=== PATIENT | female | born 1955 | race Caucasian/White ===

== ENCOUNTER → 2020-01-01 13:22 | Outpatient (BNVA) | payer MEDICARE, SELFPAY | PROVIDERS: PCP Internal Medicine; Referring Provider Internal Medicine; Visit Provider Internal Medicine | DX: J44.9 Chronic obstructive pulmonary disease, unspecified (principal); Z79.899 Other long term (current) drug therapy | CPT/HCPCS: 94010; 99213 ==

== ENCOUNTER 2020-03-25 13:55 | Outpatient (REF) | payer MEDICARE, SELFPAY ==
--- NOTE | 2020-03-25 14:03 | MM_ITS ---
EXAMINATION: BONE DENSITOMETRY CLINICAL INDICATION: Age-related osteoporosis without current pathological fracture. COMPARISON: Previous BD dated 11/11/2017 and baseline BD dated 10/09/2008. TECHNIQUE: Using a [employer] DXA System (software version: 13.1) manufactured by [employer], dual-energy x-ray absorptiometry was performed of the lumbar spine and left hip. The images are of good technical quality. Summary results are attached. FINDINGS: AP SPINE L1-L4: Current: BMD 0.721 g/cm2, Z-score -2.4, T-score -3.8, osteoporosis, 1.1% decrease from previous, 5.1% decrease from baseline (<5% change is not significant). Prior: BMD 0.729 g/cm2. Baseline: BMD 0.760 g/cm2. LEFT FEMUR, NECK: Current: BMD 0.663 g/cm2, Z-score -1.3, T-score -2.7, osteoporosis. Prior: BMD 0.682 g/cm2. Baseline: BMD 0.725 g/cm2. LEFT FEMUR, TOTAL: Current: BMD 0.722 g/cm2, Z-score -1.2, T-score -2.3, osteopenia, 1.0% decrease from previous, 1.4% increase from baseline (<5% change is not significant). Prior: BMD 0.729 g/cm2. Baseline: BMD 0.712 g/cm2. IDENTIFIED RISK FACTORS: Early menopause, secondary osteoporosis, hysterectomy, bilateral oophorectomy, osteoporosis. HISTORY OF FRACTURE: Foot. MEDICATIONS: None listed. MM/XR DEXA axial skeleton IMPRESSION: 1. DIAGNOSIS: Osteoporosis based on the lowest T-score value of -3.8 in the lumbar spine applying World Health Organization criteria. 2. 10-YEAR FRACTURE RISK PREDICTION, FRAX: Major osteoporotic fracture (clinical spine, forearm, hip or shoulder) 22.2%. Hip fracture 5.2%. 3. Treatment Recommendations: NOF guidelines recommend consideration for treatment in postmenopausal women and men age 50 and older presenting with the following: -A hip or vertebral (clinical or morphometric) fracture. -T-score less than or equal to -2.5 at the femoral neck or spine after appropriate evaluation to exclude secondary causes. -Low bone mass at the hip or spine and a 10-year fracture probability by FRAX of greater than or equal to 3% for hip fracture or greater than or equal to 20% for major osteoporotic fracture based on the [place] adapted WHO algorithm. 4. Other Recommendations: All treatment decisions require clinical judgment and consideration of individual patient factors, including patient preferences, comorbidities, previous drug use, risk factors not captured in the FRAX model (e.g. frailty, falls, vitamin D deficiency, increased bone turnover, interval significant decline in bone density) and possible under or overestimation of fracture risk by FRAX. Additional medical evaluation for secondary cause of low bone mineral density may be appropriate. FUTURE SCAN RECOMMENDATION: People with diagnosed cases of osteoporosis or at high risk for fracture should have regular bone mineral density tests. For patients eligible for Medicare, routine testing is allowed once every 2 years. The testing frequency can be increased to one year for patients who have rapidly progressing disease, those who are receiving or discontinuing medical therapy to restore bone mass, or have additional risk factors.
== END 2020-03-25 13:56 | disposition home or self-care (01) ==
LOC: HO.MAMMO 13:55
PROVIDERS: PCP Internal Medicine; Visit Provider Internal Medicine
DX: M81.0 Age-related osteoporosis without current pathological fracture (principal); Z78.0 Asymptomatic menopausal state; Z90.710 Acquired absence of both cervix and uterus; Z90.722 Acquired absence of ovaries, bilateral
CPT/HCPCS: 77080

== ENCOUNTER → 2020-05-01 13:20 | Outpatient (BNVA) | payer MEDICARE, SELFPAY | PROVIDERS: PCP Internal Medicine; Visit Provider Internal Medicine | DX: J45.909 Unspecified asthma, uncomplicated (principal); J44.9 Chronic obstructive pulmonary disease, unspecified | CPT/HCPCS: 99212 ==

== ENCOUNTER 2020-06-07 15:31 | Outpatient (REF) | payer MEDICARE, SELFPAY ==
--- NOTE | ~2020-06-07 | MM_ITS ---
EXAMINATION: MM SCREENING DIGITAL BREAST TOMOSYNTHESIS, BILATERAL CLINICAL INFORMATION: Screening. Asymptomatic. The lifetime risk of breast cancer based on the Tyrer-Cuzick Model is 6.7%. COMPARISON: Mammography: July 22, 2018 and studies dating back to June 16, 2010 TECHNIQUE: Digital breast tomosynthesis is performed in both the craniocaudal and mediolateral oblique views along with computer-aided detection (CAD). Synthesized 2D images are generated from the tomosynthesis. FINDINGS: There are scattered areas of fibroglandular density (ACR BI-RADS breast composition Category b). There are no significant masses, abnormal calcifications, or other abnormalities. MM/MM tomosynthesis screening BI IMPRESSION: There are no significant changes from prior study. ASSESSMENT: BI-RADS 1: Negative RECOMMENDATION: Routine annual mammography screening. This patient's information was entered into a reminder system with a target due date for their next mammogram.
== END 2020-06-07 15:32 | disposition home or self-care (01) ==
LOC: HO.MAMMO 15:31
PROVIDERS: PCP Internal Medicine; Visit Provider Internal Medicine
DX: Z12.31 Encounter for screening mammogram for malignant neoplasm of breast (principal)
CPT/HCPCS: 77063; 77067

== ENCOUNTER 2020-08-09 11:43 | Outpatient (REF) | payer MEDICARE, SELFPAY ==
[2020-08-09 14:16] LABS: Hematocrit 41.9 % (37-47); Hemoglobin 13.5 g/dl (12.0-16.0); Mean Corpuscular HGB Conc 32.2 g/dl (31.0-35.0); Mean Corpuscular Hemoglobin 28.8 pg (27.0-33.0); Mean Corpuscular Volume 89.5 fL (80-98); Mean Platelet Volume 9.8 fL (9.4-12.3); Platelet Count 240 X10*3/uL (160-400); Red Blood Count 4.68 X10*6/uL (4.20-5.50); Red Cell Distribution Width 13.2 % (11.0-16.0); White Blood Count 4.2 X10*3/uL (4.8-10.8)
[2020-08-09 14:27] LABS: Alanine Aminotransferase 17 U/L (0-31); Albumin Level 4.1 g/dL (3.5-5.0); Alkaline Phosphatase 135 U/L (39-117); Anion Gap 14 (12-20); Aspartate Amino Transferase 20 U/L (5-31); Bilirubin Total 0.3 mg/dL (0.0-1.0); Blood Urea Nitrogen 21 mg/dL (9-16); Calcium 9.1 mg/dL (8.4-10.2); Carbon Dioxide 24 mmol/L (22-29); Chloride 108 mmol/L (96-108); Cholesterol 158 mg/dL; Estimated Glomerular Filt Rate > 60; Glucose Fasting 84 mg/dL (60-99); HDL Cholesterol 44 mg/dL; LDL Cholesterol Calculated 93 mg/dl; Potassium 4.3 mmol/L (3.3-5.1); Sodium 142 mmol/L (135-145); Total Protein 6.9 g/dL (6.5-8.0); Triglycerides 106 mg/dL
[2020-08-09 14:49] LABS: TSH reflex Free T4 1.03 uIU/mL (0.32-4.0)
[2020-08-10 06:45] LABS: Theophylline 5.6
== END 2020-08-09 11:44 | disposition home or self-care (01) ==
LOC: HO.HMGCLDS 11:43
PROVIDERS: PCP Internal Medicine; Visit Provider Internal Medicine
DX: M81.0 Age-related osteoporosis without current pathological fracture (principal); E78.5 Hyperlipidemia, unspecified; J44.9 Chronic obstructive pulmonary disease, unspecified
CPT/HCPCS: 36415; 80053; 80061; 80198; 84443; 85027

== ENCOUNTER → 2020-08-29 13:20 | Outpatient (BNVA) | payer MEDICARE, SELFPAY | PROVIDERS: PCP Internal Medicine; Visit Provider Internal Medicine | DX: J45.909 Unspecified asthma, uncomplicated (principal); J44.9 Chronic obstructive pulmonary disease, unspecified; J44.1 Chronic obstructive pulmonary disease with (acute) exacerbation | CPT/HCPCS: 99212 ==

== ENCOUNTER → 2020-12-26 13:26 | Outpatient (BNVA) | payer MEDICARE, SELFPAY | PROVIDERS: PCP Internal Medicine; Visit Provider Internal Medicine | DX: J44.9 Chronic obstructive pulmonary disease, unspecified (principal); J45.909 Unspecified asthma, uncomplicated; M81.0 Age-related osteoporosis without current pathological fracture | CPT/HCPCS: 99212 ==

== ENCOUNTER → 2021-04-24 13:03 | Outpatient (BNVA) | payer MEDICARE, SELFPAY | PROVIDERS: PCP Internal Medicine; Visit Provider Internal Medicine | DX: J44.9 Chronic obstructive pulmonary disease, unspecified (principal); J45.909 Unspecified asthma, uncomplicated | CPT/HCPCS: 99212 ==

== ENCOUNTER 2021-06-09 13:59 | Outpatient (REF) | payer MEDICARE, SELFPAY ==
--- NOTE | ~2021-06-09 | MM_ITS ---
EXAMINATION: MM SCREENING DIGITAL BREAST TOMOSYNTHESIS, BILATERAL CLINICAL INFORMATION: Screening. Asymptomatic. The lifetime risk of breast cancer based on the Tyrer-Cuzick Model is 7%. COMPARISON: Mammography: 06/07/2020, 07/22/2018, 06/13/2012, 06/16/2010 TECHNIQUE: Digital breast tomosynthesis is performed in both the craniocaudal and mediolateral oblique views along with computer-aided detection (CAD). Synthesized 2D images are generated from the tomosynthesis. FINDINGS: There are scattered areas of fibroglandular density (ACR BI-RADS breast composition Category b). There are no significant masses, abnormal calcifications, or other abnormalities. There are small dermal lesions again seen overlying the bilateral anterior upper breast on MLO views. Parenchymal pattern is similar to prior exams. The axilla are unremarkable. MM/MM tomosynthesis screening BI IMPRESSION: No mammographic evidence of malignancy. ASSESSMENT: BI-RADS 2: Benign RECOMMENDATION: Routine annual mammography screening. This patient's information was entered into a reminder system with a target due date for their next mammogram.
== END 2021-06-09 14:00 | disposition home or self-care (01) ==
LOC: HO.MAMMO 13:59
PROVIDERS: PCP Internal Medicine; Visit Provider Internal Medicine
DX: Z12.31 Encounter for screening mammogram for malignant neoplasm of breast (principal)
CPT/HCPCS: 77063; 77067

== ENCOUNTER 2021-07-24 13:38 | Outpatient (REF) | payer MEDICARE, SELFPAY ==
[2021-07-24 16:34] LABS: Hemoglobin 12.9 g/dl (12.0-16.0); Mean Corpuscular HGB Conc 33.1 g/dl (31.0-35.0); Mean Corpuscular Hemoglobin 29.5 pg (27.0-33.0); Mean Platelet Volume 10.1 fL (9.4-12.3); Platelet Count 256 X10*3/uL (160-400); Red Blood Count 4.38 X10*6/uL (4.20-5.50); Red Cell Distribution Width 12.9 % (11.0-16.0); White Blood Count 4.9 X10*3/uL (4.8-10.8)
[2021-07-24 16:45] LABS: Alanine Aminotransferase 14 U/L (0-31); Alkaline Phosphatase 98 U/L (39-117); Anion Gap 12 (12-20); Aspartate Amino Transferase 17 U/L (5-31); Bilirubin Total 0.5 mg/dL (0.0-1.0); Blood Urea Nitrogen 16 mg/dL (9-16); Calcium 9.5 mg/dL (8.4-10.2); Carbon Dioxide 23 mmol/L (22-29); Chloride 110 mmol/L (96-108); Cholesterol 157 mg/dL; Estimated Glomerular Filt Rate > 60; Glucose Fasting 78 mg/dL (60-99); HDL Cholesterol 42 mg/dL; LDL Cholesterol Calculated 95 mg/dl; Potassium 4.1 mmol/L (3.3-5.1); Sodium 141 mmol/L (135-145); Total Protein 7.2 g/dL (6.5-8.0); Triglycerides 103 mg/dL
== END 2021-07-24 13:39 | disposition home or self-care (01) ==
LOC: HO.HMGCLDS 13:38
PROVIDERS: PCP Internal Medicine; Visit Provider Internal Medicine
DX: E78.5 Hyperlipidemia, unspecified (principal); J44.9 Chronic obstructive pulmonary disease, unspecified
CPT/HCPCS: 36415; 80053; 80061; 84443; 85027

== ENCOUNTER → 2021-11-06 13:10 | Outpatient (BNVA) | payer MEDICARE, SELFPAY | PROVIDERS: PCP Internal Medicine; Visit Provider Internal Medicine | DX: J44.9 Chronic obstructive pulmonary disease, unspecified (principal); Z79.899 Other long term (current) drug therapy | CPT/HCPCS: 99212 ==

== ENCOUNTER → 2022-05-12 13:19 | Outpatient (BNVA) | payer MEDICARE, SELFPAY | PROVIDERS: PCP Internal Medicine; Visit Provider Internal Medicine | DX: J44.9 Chronic obstructive pulmonary disease, unspecified (principal); J45.909 Unspecified asthma, uncomplicated | CPT/HCPCS: 99212 ==

== ENCOUNTER 2022-06-11 13:07 | Outpatient (REF) | payer MEDICARE, SELFPAY ==
--- NOTE | ~2022-06-11 | MM_ITS ---
EXAMINATION: MM SCREENING DIGITAL BREAST TOMOSYNTHESIS, BILATERAL CLINICAL INFORMATION: Screening. Asymptomatic. The lifetime risk of breast cancer based on the Tyrer-Cuzick Model is 8.1%. COMPARISON: Mammography: June 09, 2021 and studies dating back to June 13, 2012 TECHNIQUE: Digital breast tomosynthesis is performed in both the craniocaudal and mediolateral oblique views along with computer-aided detection (CAD). Synthesized 2D images are generated from the tomosynthesis. FINDINGS: There are scattered areas of fibroglandular density (ACR BI-RADS breast composition Category b). There are no significant masses, abnormal calcifications, or other abnormalities. MM/MM tomosynthesis screening BI IMPRESSION: No significant changes from prior exam. ASSESSMENT: BI-RADS 1: Negative RECOMMENDATION: Routine annual mammography screening. This patient's information was entered into a reminder system with a target due date for their next mammogram.
== END 2022-06-11 13:08 | disposition home or self-care (01) ==
LOC: HO.MAMMO 13:07
PROVIDERS: PCP Internal Medicine; Visit Provider Internal Medicine
DX: Z12.31 Encounter for screening mammogram for malignant neoplasm of breast (principal)
CPT/HCPCS: 77063; 77067

== ENCOUNTER 2022-08-18 14:11 | Outpatient (REF) | payer MEDICARE, SELFPAY ==
--- NOTE | ~2022-08-18 | MM_ITS ---
EXAMINATION: BONE DENSITOMETRY CLINICAL INDICATION: Age-related osteoporosis without current pathological fracture. COMPARISON: Previous BD dated 03/25/2020 and baseline BD dated 10/09/2008. TECHNIQUE: Using a [employer] DXA System (software version: 13.1) manufactured by [employer], dual-energy x-ray absorptiometry was performed of the lumbar spine and left hip. The images are of good technical quality. Summary results are attached. FINDINGS: AP SPINE L1-L4: Current: BMD 0.662 g/cm2, Z-score -2.8, T-score -4.3, osteoporosis, 8.2% decrease from previous, 12.9% decrease from baseline (<5% change is not significant). Prior: BMD 0.721 g/cm2. Baseline: BMD 0.760 g/cm2. LEFT FEMUR, NECK: Current: BMD 0.639 g/cm2, Z-score -1.4, T-score -2.9, osteoporosis. Prior: BMD 0.663 g/cm2. Baseline: BMD 0.725 g/cm2. LEFT FEMUR, TOTAL: Current: BMD 0.742 g/cm2, Z-score -1.0, T-score -2.1, osteopenia, 2.8% increase from previous, 4.2% increase from baseline (<5% change is not significant). Prior: BMD 0.722 g/cm2. Baseline: BMD 0.712 g/cm2. IDENTIFIED RISK FACTORS: Early menopause, height loss, hysterectomy, osteoporosis, secondary osteoporosis. HISTORY OF FRACTURE: None listed. MEDICATIONS: None listed. MM/XR DEXA axial skeleton IMPRESSION: 1. DIAGNOSIS: Osteoporosis based on the lowest T-score value of -4.3 in the lumbar spine applying World Health Organization criteria. 2. 10-YEAR FRACTURE RISK PREDICTION, FRAX: According to the guidelines, FRAX calculation should only be performed on patients in the osteopenia bone density category. Therefore, FRAX was not performed on this patient. 3. Treatment Recommendations: NOF guidelines recommend consideration for treatment in postmenopausal women and men age 50 and older presenting with the following: -A hip or vertebral (clinical or morphometric) fracture. -T-score less than or equal to -2.5 at the femoral neck or spine after appropriate evaluation to exclude secondary causes. -Low bone mass at the hip or spine and a 10-year fracture probability by FRAX of greater than or equal to 3% for hip fracture or greater than or equal to 20% for major osteoporotic fracture based on the [place] adapted WHO algorithm. 4. Other Recommendations: All treatment decisions require clinical judgment and consideration of individual patient factors, including patient preferences, comorbidities, previous drug use, risk factors not captured in the FRAX model (e.g. frailty, falls, vitamin D deficiency, increased bone turnover, interval significant decline in bone density) and possible under or overestimation of fracture risk by FRAX. Additional medical evaluation for secondary cause of low bone mineral density may be appropriate. FUTURE SCAN RECOMMENDATION: People with diagnosed cases of osteoporosis or at high risk for fracture should have regular bone mineral density tests. For patients eligible for Medicare, routine testing is allowed once every 2 years. The testing frequency can be increased to one year for patients who have rapidly progressing disease, those who are receiving or discontinuing medical therapy to restore bone mass, or have additional risk factors.
== END 2022-08-18 14:12 | disposition home or self-care (01) ==
LOC: HO.MAMMO 14:11
PROVIDERS: PCP Internal Medicine; Visit Provider Internal Medicine
DX: Z13.820 Encounter for screening for osteoporosis (principal); Z78.0 Asymptomatic menopausal state; M81.0 Age-related osteoporosis without current pathological fracture
CPT/HCPCS: 77080

== ENCOUNTER → 2022-09-14 13:02 | Outpatient (BNVA) | payer MEDICARE, SELFPAY | PROVIDERS: Referring Provider Internal Medicine; Visit Provider Surgery | DX: Z01.818 Encounter for other preprocedural examination (principal); D17.9 Benign lipomatous neoplasm, unspecified | CPT/HCPCS: 99202 ==

== ENCOUNTER 2022-09-29 08:39 | Day surgery (SDC) | payer MEDICARE, SELFPAY ==
[2022-09-25 11:52] VITALS: BMI 30.5
--- NOTE | 2022-09-28 10:11 | HO.ANESPROP2 ---
Documented by User: Lizzie Meadows NP 09/28/22 10:12 HPI - Anesthesia Eval Consult details Narrative: 66yo F for Right Excision Lipoma x5 forearm PMFSH Active Problems Active Problems: All Active Problems (Updated 09/14/22 @ 13:30 by Adarsh Johnson MD) Multiple lipomas (Acute) Lipoma of arm (Acute) Vitamin D deficiency (Acute) Annual physical exam (Acute) COPD exacerbation (Acute) S/P GURINDER (total abdominal hysterectomy) (Acute) Mammogram normal (Acute) Osteoporosis (Acute) Hyperlipidemia (Acute) Asthma (Acute) COPD (chronic obstructive pulmonary disease) (Acute) Past Medical History Medical History Annual physical exam Asthma COPD (chronic obstructive pulmonary disease) COPD exacerbation Hyperlipidemia Mammogram normal Multiple lipomas Osteoporosis Vitamin D deficiency Family History Family History Father Stroke Mother Heart problem Sister Breast cancer Surgical History Surgical History H/O colonoscopy H/O: hysterectomy S/P GURINDER (total abdominal hysterectomy) Social History Social History Housing: House Alcohol intake: never Patient Tobacco Use Status: Never used Tobacco e-Cigarette/Vaping Use: Never Used Second Hand Smoke Exposure: No Use of substances other than those prescribed or required for medical reasons: No Are you DNR?: No Advance Directives: No Advance Directives Information Provided: Yes Advance Directives on File: No Current occupational status: retired Cognitive needs: No Hearing needs: No Vision needs: No Meds Allergies Allergy/AdvReac Type Severity Reaction Status Date / Time No Known Allergies Allergy Verified 08/06/22 13:02 Exam Exam Date and Time: September 28, 2022 1011 Height,Weight and Vital Signs: Height 4 ft 11 in Weight 68.492 kg Assessment and Plan Assessment Anesthesia Assessment: Chart Reviewed Documented by User: Jessica Gray MD 09/29/22 10:19 HPI - Anesthesia Eval Consult details Narrative: 66yo F for Right Excision Lipoma x5 forearm, moderateky severe copd PMFSH Past Medical History Medical History Annual physical exam Asthma COPD (chronic obstructive pulmonary disease) COPD exacerbation Hyperlipidemia Mammogram normal Multiple lipomas Osteoporosis Vitamin D deficiency Family History Family History Father Stroke Mother Heart problem Sister Breast cancer Family history of problems with anesthesia: No Surgical History Surgical History H/O colonoscopy H/O: hysterectomy S/P GURINDER (total abdominal hysterectomy) History of Problems with Anesthesia: No Social History Social History Housing: House Alcohol intake: never Patient Tobacco Use Status: Never used Tobacco e-Cigarette/Vaping Use: Never Used Second Hand Smoke Exposure: No Use of substances other than those prescribed or required for medical reasons: No Are you DNR?: No Advance Directives: No Advance Directives Information Provided: Yes Advance Directives on File: No Current occupational status: retired Cognitive needs: No Hearing needs: No Vision needs: No Meds Allergies Allergy/AdvReac Type Severity Reaction Status Date / Time No Known Allergies Allergy Verified 08/06/22 13:02 Exam Airway Mallampati Class: III TM Dist: <=3cm Neck ROM: Full Heart: rrr Lungs: cta Assessment and Plan Assessment Anesthesia Assessment: Anesthesia Plan Discussed Final Anesthetic Review Family History of Problems with Anesthesia: No History of Problems with Anesthesia: No NPO: Yes ASA Class: III Final Preanesthetic Review: No Changes in Pt Med Stat, Meds/Allgs Chart Reviewed, Consent Obtained/Reviewed and Anes Risks/Benef Reviewed Patient Risk: Intermediate Procedure Risk: Low Anesthetic Plan Anesthetic Plan: GA and Agree w/ Assess. and Plan Disposition: Standard PACU
[2022-09-29 09:09] VITALS: BP 140/82; PULSE 58; RESP 16; TEMP 36.6; O2SAT 98
[2022-09-29] MEDS: Lactated Ringers 1,000 ML 100 ML IVCONT (09:21)
--- NOTE | 2022-09-29 10:30 | MHC.SHP ---
Pre-Procedural Eval Section A Date of Service: 09/29/22 The patient is an INPATIENT: No Changes since office visit: No Cold of Flu in the past 2 weeks, No New Medical Problems, No Changes in Medication and No Patient answered all questions The History & Physical has been completed within 30 days and I have reviewed it.: Yes Section B Chief Complaint: Benign lipomatous neoplasm, unspecified Details of Present Illness: she wants 6 lipomas removed from the forearm Allergies: Allergies Allergy/AdvReac Type Severity Reaction Status Date / Time No Known Allergies Allergy Verified 08/06/22 13:02 Plan I have reviewed the history and physical and performed a pertinent physical examination on my patient. No changes have occurred unless specified. Time Spent With Patient Time: Total time managing care of this patient today ____ minutes.
--- NOTE | 2022-09-29 11:30 | W.PM.OPN ---
Operative Note Operative Note Date of Service: 09/29/22 Narrative: Preop diagnosis: multiple lipomas, right forearm Postop diagnosis: multiple lipomas, x 6, right forearm Procedure: Excision of lipomas x 6, right forearm Surgeon: Adarsh Johnson MD The patient is a 66F with multiple lipomas on the right forearm and wnted these excised. She understood the technique of excision under anesthesia and was aware of the risks, benefits and alternatives. The was brought to the OR and placed supine under MAC with the right arm abducted on a side table. I ahd marked 6 lipomas, 5 of which were on the anterior aspect. The right forearm was prepped and draped in the usual sterile fashion. Lidocaine 1% was used for local anesthesia. I made incisions on the skin overlying all these lipomas using a blade 15. All incisions were carried down through the full-thickness of skin and part of subcutaneous layer to identify each lipoma. Each lipoma was dissected from the subcutaneous layer sharply with Metzenbaum scissors and delivered and sent as specimens to pathology. There were 2 lipomas measuring about 2 cm in size, 1 was 3 cm. Another lipoma was about 3 cm in size and another 1 about 3.5 cm. One lipoma was about 1.5 cm in size. I closed all incisions with 3-0 simple interrupted sutures. Dressings were applied. The forearm was wrapped with a Terry roll. The procedure was then completed. She tolerated procedure well. There were no immediate complications. Initial and final counts of sponges and instruments were correct. Estimated blood loss was about 20 cc. The patient was then transferred to the recovery room with stable vital signs.
[2022-09-29 11:34] VITALS: BP 121/69; PULSE 59; RESP 16; TEMP 36.1; O2SAT 99
[2022-09-29 11:39] VITALS: BP 111/66; PULSE 49; RESP 16; O2SAT 97
[2022-09-29 11:44] VITALS: BP 107/71; PULSE 46; RESP 16; O2SAT 96
[2022-09-29 11:49] VITALS: BP 106/74; PULSE 48; RESP 16; O2SAT 98
[2022-09-29 12:04] VITALS: BP 120/70; PULSE 50; RESP 16; TEMP 36.1; O2SAT 100
== END 2022-09-29 12:57 | disposition home or self-care (01) ==
PROVIDERS: PCP Internal Medicine; Visit Provider Surgery
PROC: (CPT 11402; principal; 2022-09-29 11:00)
DX: D17.21 Benign lipomatous neoplasm of skin and subcutaneous tissue of right arm (principal); J44.9 Chronic obstructive pulmonary disease, unspecified
CPT/HCPCS: 11402 ×3; 11403 ×2; 11404; 88304; J0690; J2795; J3010

== ENCOUNTER → 2022-09-29 08:39 | Outpatient (BNV) | payer MEDICARE, SELFPAY | PROVIDERS: PCP Internal Medicine; Visit Provider Surgery | DX: D17.21 Benign lipomatous neoplasm of skin and subcutaneous tissue of right arm (principal) | CPT/HCPCS: 25071; 25075 ==

== ENCOUNTER 2022-10-12 13:04 | Outpatient (AMB) | payer MEDICARE, SELFPAY ==
--- NOTE | 2022-10-12 13:22 | MHC.OFFVIS ---
Intake Vital Signs 10/12/22 13:29 Weight 149 lb BP 125/73 Blood Pressure Location Lt brachial Position Sitting Pulse 59 Intake Visit Reasons: S/P excision lipomas x5 Rt forearm Intake Note: This patient presents for a post-op assessment status post excision of lipomas x6 right forearm. Patient denies complaints at this time. 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 She tolerated the procedure well. She currently denies significant complaints. [facility] Medical History Annual physical exam Asthma COPD (chronic obstructive pulmonary disease) COPD exacerbation Hyperlipidemia Mammogram normal Multiple lipomas Osteoporosis Vitamin D deficiency Surgical History H/O colonoscopy H/O: hysterectomy S/P excision of lipoma (~09/29/22) S/P GURINDER (total abdominal hysterectomy) Family History Father Stroke Mother Heart problem Sister Breast cancer Social History Housing: House Alcohol intake: never Patient Tobacco Use Status: Never used Tobacco e-Cigarette/Vaping Use: Never Used Second Hand Smoke Exposure: No Current occupational status: retired Cognitive needs: No Hearing needs: No Vision needs: No Review of Systems Const Denies chills and Denies fever(s) Card Denies chest pain, Denies dyspnea and Denies dyspnea on exertion Resp Denies cough, Denies dyspnea and Denies dyspnea on exertion GI Denies hematochezia and Denies change in bowel habits Denies hematuria Musc Denies back pain and Denies limited range of motion Neuro Denies focal weakness and Denies convulsions Psych Denies depression and Denies mood swings Physical Exam Vital Signs: Last Vital Signs Pulse 59 10/12/22 13:29 BP 125/73 10/12/22 13:29 Const General: comfortable and no acute distress Extrem Other: All 6 excision sites are well healed, not infected, sutures intact Assessment & Plan Assessment & Plan (1) Multiple lipomas: Code(s): D17.9 - Benign lipomatous neoplasm, unspecified Plan: I removed all her sutures. The wound edges remained well apposed. Her path report shows lipomas. She can follow up on a p.r.n. basis. Coding Level of Care Code Global (95213) Diagnoses Multiple lipomas D17.9
[2022-10-12 13:29] VITALS: BP 125/73; PULSE 59
== END 2022-10-12 13:45 | disposition home or self-care (01) ==
PROVIDERS: PCP Internal Medicine; Visit Provider Surgery
DX: D17.9 Benign lipomatous neoplasm, unspecified (principal)
CPT/HCPCS: 99024

== ENCOUNTER → 2022-10-12 13:04 | Outpatient (BNVA) | payer MEDICARE, SELFPAY | PROVIDERS: PCP Internal Medicine; Visit Provider Surgery ==

== ENCOUNTER 2022-11-10 13:19 | Outpatient (AMB) | payer MEDICARE, SELFPAY ==
[2022-11-10 13:30] VITALS: BP 110/64; PULSE 87; O2SAT 97; BMI 30.1
--- NOTE | 2022-11-10 13:30 | A.OFFVIS_ITS ---
Intake Vital Signs 11/10/22 13:30 Height 4 ft 11 in Weight 149 lb BMI 30.1 BP 110/64 Blood Pressure Location Lt brachial Position Sitting Pulse 87 Pulse Source Pulse Oximeter Pulse Oximetry (%) 97 Oxygen Delivery Method Room Air Intake Visit Reasons: COPD Intake Note: pt is here for follow up and states she is feeling good, no issues Obiee Architect Required: No Allergies No Known Allergies Allergy (Verified 11/10/22 14:11) Medication List - Last Reconciled 11/10/22 by Radha Mendez MD albuterol sulfate 90 mcg/actuation 2 puffs inhalation Q6H PRN budesonide 0.5 mg (2 mL) inhalation BID cholecalciferol (vitamin D3) 50 mcg PO DAILY ipratropium-albuterol 0.5 mg-3 mg(2.5 mg base)/3 mL 1.5 mL inhalation BID 90 days loratadine (Claritin) 10 mg PO DAILY montelukast 10 mg PO DAILY pravastatin 20 mg PO DAILY theophylline ER 300 mg PO DAILY Do you need a note to return to daycare/school/sports/work: No HPI COPD HPI Details CHRISTINE IS 66 YEARS OLD FEMALE A E [place] PATIENT OF BRONCHIAL ASTHMA/COPD. COMES FOR ROUTINE FOLLOW-UP AFTER 4 MONTHS. HER RESPIRATORY STATUS REMAINS VERY STABLE AND WELL CONTROLLED ON THE CURRENT REGIMEN. SHE HAS HAD NO ACUTE EXACERBATION. SHE HAS MILD INTERMITTENT COUGH AND SHORTNESS OF BREATH ON MODERATELY HEAVY EXERTION, USUAL, SHE IS TAKING VERY GOOD CARE OF HERSELF. [facility] Medical History Annual physical exam Asthma COPD (chronic obstructive pulmonary disease) COPD exacerbation Hyperlipidemia Mammogram normal Multiple lipomas Osteoporosis Vitamin D deficiency Surgical History H/O colonoscopy H/O: hysterectomy S/P excision of lipoma (~09/29/22) S/P GURINDER (total abdominal hysterectomy) Family History Father Stroke Mother Heart problem Sister Breast cancer Social History Housing: House Alcohol intake: never Patient Tobacco Use Status: Never used Tobacco e-Cigarette/Vaping Use: Never Used Second Hand Smoke Exposure: No Current occupational status: retired Cognitive needs: No Hearing needs: No Vision needs: No Review of Systems Const All systems reviewed & are unremarkable except as noted in HPI and below Eyes Reports no additional complaints ENT Reports nasal congestion (Mild intermittent, mostly due to change in the weather) Card Denies chest pain, Denies irregular heart rhythm and Denies leg edema Resp Reports as per HPI GI Reports no additional complaints Reports no additional complaints Musc Reports back pain (Mild, not active) Skin/Breast Reports system reviewed and no additional complaints, except as documented Neuro Reports no additional complaints Psych Reports no additional complaints Physical Exam Vital Signs: Last Vital Signs Pulse 87 11/10/22 13:30 BP 110/64 11/10/22 13:30 Pulse Ox 97 11/10/22 13:30 Oxygen Delivery Method Room Air 11/10/22 13:30 BMI result Body Mass Index 30.1 Const General: comfortable, no acute distress, alert and awake Orientation/consciousness: patient oriented x3 HEENT Head: Yes normal to inspection General nose exam: No nasal polyps present and No nasal discharge present Face and sinus: Yes sinuses nontender Mouth: oropharynx normal Throat: Yes posterior oropharynx normal Eyes General: appearance normal, both eyes and all related structures Neck Neck: Yes normal visual inspection, Yes no lymphadenopathy, Yes trachea midline and Yes no JVD Thyroid: Thyroid normal Chest Chest palpation & inspection: normal inspection of the chest, normal palpation of entire chest wall, no tenderness and other (Has increased AP diameter of the chest) Resp Other: Percussion note hyper-resonant, breath sounds are equal on both sides, moderately distant with prolonged expiratory phase. No wheezes rhonchi or crepitations heard. Cardio Palpation: normal PMI Rate: regular rate Rhythm: regular rhythm Heart sounds: no gallops and no murmurs Peripheral pulses: Peripheral pulses 2+ throughout GI Palpation (GI): Soft to palpation, nontender, No hepatosplenomegaly present and no masses Auscultation: normal bowel sounds Back/Spine/Pelvis Thoracic/Lumbar Spine: thoracic and lumbar spine normal to inspection and thoraco-lumbar ROM limited Skin General skin exam: no rashes or lesions noted Neuro General: patient oriented x3 and no focal motor deficits Cranial nerves: Yes CN's II-XII intact bilaterally Extrem General: Yes normal to inspection, Yes no clubbing, cyanosis or edema and Yes no calf tenderness Psych Appearance: grossly normal and well kempt Speech and movement: Normal speech and movement present Assessment & Plan Assessment & Plan (1) Asthma: Comment: SHE HAS ASTHMA/ COPD OVERLAP SYNDROME. OVER THE PAST MANY YEARS IT HAS CHANGED MOSTLY INTO COPD TREATMENT NOTED UNDER COPD . STAYING VERY STABLE . Code(s): J45.909 - Unspecified asthma, uncomplicated (2) COPD (chronic obstructive pulmonary disease): Comment: She does have moderately advanced chronic obstructive pulmonary disease But remains stable and doing well. [place]: CONTINUE DUONEB UPDRAFTS Q 6 HOURS WHILE AWAKE. CONTINUE BUDESONIDE 0.5 MG SUSPENSION IN UPDRAFT B.I.D. CONTINUE MONTELUKAST 10 MG DAILY. CONTINUE THEOPHYLLINE ER 300 MG ONCE A DAY. PROAIR 2 PUFFS Q.4 HOURS ONLY P.R.N. Code(s): J44.9 - Chronic obstructive pulmonary disease, unspecified Coding Level of Care Code Est Pt Level 3 (92863) Diagnoses Asthma J45.909 COPD (chronic obstructive pulmonary disease) J44.9
== END 2022-11-10 13:45 | disposition home or self-care (01) ==
PROVIDERS: PCP Internal Medicine; Visit Provider Internal Medicine
DX: J44.9 Chronic obstructive pulmonary disease, unspecified (principal)
CPT/HCPCS: 99213

== ENCOUNTER → 2022-11-10 13:19 | Outpatient (BNVA) | payer MEDICARE, SELFPAY | PROVIDERS: Visit Provider Internal Medicine | DX: J44.9 Chronic obstructive pulmonary disease, unspecified (principal); Z79.899 Other long term (current) drug therapy | CPT/HCPCS: 99212 ==

== ENCOUNTER 2023-01-20 13:05 | Outpatient (REF) | payer MEDICARE, SELFPAY ==
[2023-01-20 16:20] LABS: Hematocrit 41.4 % (37.0-47.0); Hemoglobin 13.6 g/dl (12.0-16.0); Mean Corpuscular HGB Conc 32.9 g/dl (31.0-35.0); Mean Corpuscular Hemoglobin 29.6 pg (27.0-33.0); Mean Corpuscular Volume 90.2 fL (80.0-98.0); Mean Platelet Volume 9.9 fL (9.4-12.3); Platelet Count 293 X10*3/uL (160-400); Red Blood Count 4.59 X10*6/uL (4.20-5.50); Red Cell Distribution Width 12.6 % (11.0-16.0); White Blood Count 4.8 X10*3/uL (4.8-10.8)
[2023-01-20 16:41] LABS: Alanine Aminotransferase 14 U/L (0-31); Albumin Level 4.1 g/dL (3.5-5.0); Alkaline Phosphatase 116 U/L (39-117); Anion Gap 12 (12-20); Aspartate Amino Transferase 17 U/L (5-31); Bilirubin Total 0.4 mg/dL (0.0-1.0); Blood Urea Nitrogen 17 mg/dL (9-16); Calcium 9.6 mg/dL (8.4-10.2); Carbon Dioxide 25 mmol/L (22-29); Chloride 108 mmol/L (96-108); Cholesterol 161 mg/dL (<200); Estimated Glomerular Filt Rate > 60; Glucose Fasting 72 mg/dL (60-99); HDL Cholesterol 40 mg/dL (>40); LDL Cholesterol Calculated 99 mg/dL (<100); Potassium 4.2 mmol/L (3.3-5.1); Sodium 141 mmol/L (135-145); Total Protein 7.5 g/dL (6.5-8.0); Triglycerides 110 mg/dL (<150)
[2023-01-20 16:58] LABS: TSH reflex Free T4 1.31 uIU/mL (0.32-4.0); Vitamin D 25-OH Total 46.8 ng/mL (>30)
== END 2023-01-20 13:06 | disposition home or self-care (01) ==
LOC: HO.HMGCLDS 13:05
PROVIDERS: PCP Internal Medicine; Visit Provider Internal Medicine
DX: Z00.00 Encounter for general adult medical examination without abnormal findings (principal); M81.0 Age-related osteoporosis without current pathological fracture; E78.5 Hyperlipidemia, unspecified; E55.9 Vitamin D deficiency, unspecified
CPT/HCPCS: 36415; 80053; 80061; 82306; 84443; 85027

== ENCOUNTER 2023-02-01 12:33 | Outpatient (AMB) | payer MEDICARE, SELFPAY ==
[2023-02-01 12:41] VITALS: BP 110/74; PULSE 64; O2SAT 98; BMI 29.7
--- NOTE | 2023-02-01 12:41 | A.OFFPC_ITS ---
Vital Signs 02/01/23 12:41 Height 4 ft 11 in Weight 147 lb BMI 29.7 BP 110/74 Blood Pressure Location Lt brachial Position Sitting Pulse 64 Pulse Source Pulse Oximeter Pulse Oximetry (%) 98 Oxygen Delivery Method Room Air Intake Visit Reasons: 6M follow up Intake Note: Pt is here today for 6 months follow up visit. Allergies No Known Allergies Allergy (Verified 02/01/23 12:48) Medication List - Last Reconciled 02/01/23 by Emma Pelaez MD albuterol sulfate 90 mcg/actuation 2 puffs inhalation Q6H PRN budesonide 0.5 mg (2 mL) inhalation BID cholecalciferol (vitamin D3) 50 mcg PO DAILY ipratropium-albuterol 0.5 mg-3 mg(2.5 mg base)/3 mL 1.5 mL inhalation BID 90 days loratadine (Claritin) 10 mg PO DAILY montelukast 10 mg PO DAILY pravastatin 20 mg PO DAILY Prolia (denosumab) 60 mg subcut [id number] theophylline ER 300 mg PO DAILY Tobacco use date assessed: 02/01/23 Dental Screening Dental Screen Date: 02/01/23 Did you have a dental visit in the last 12 months?: Yes Did you have a dental problem in the last 6 months where you did not have access to dental care?: No Was dental information given to patient?: Patient has dentist HPI 6M follow up HPI Details Patient presents for f/u of hyperlipid, asthma/COPD. Patient reports worsening symptoms in the fall worsening of chronic cough and postnasal drip. Patient had never had allergy testing. [facility] Medical History Annual physical exam Asthma COPD (chronic obstructive pulmonary disease) COPD exacerbation Hyperlipidemia Mammogram normal Multiple lipomas Osteoporosis Vitamin D deficiency Surgical History H/O colonoscopy H/O: hysterectomy S/P excision of lipoma (~09/29/22) S/P GURINDER (total abdominal hysterectomy) Family History Father Stroke Mother Heart problem Sister Breast cancer Social History Housing: House Alcohol intake: never Patient Tobacco Use Status: Never used Tobacco e-Cigarette/Vaping Use: Never Used Second Hand Smoke Exposure: No Current occupational status: retired Cognitive needs: No Hearing needs: No Vision needs: No Questionnaire Thrive Questionnaire Date Thrive assessed: 08/06/22 CHICA-7 AMB Questionnaire CHICA-7 Date CHICA - 7 assessed: 08/06/22 Source: Developed by Drs. Alex Walton, Julia Tavares, Darshan Nichole and colleagues, with an educational angel from [employer] Review of Systems Const All systems reviewed & are unremarkable except as noted in HPI and below Reports no additional complaints Eyes Reports no additional complaints ENT Reports no additional complaints Card Reports no additional complaints Resp Reports no additional complaints GI Reports no additional complaints Reports no additional complaints Physical exam (Primary Care) Vital Signs: Last Vital Signs Pulse 64 02/01/23 12:41 BP 110/74 02/01/23 12:41 Pulse Ox 98 02/01/23 12:41 Oxygen Delivery Method Room Air 02/01/23 12:41 BMI result Body Mass Index 29.7 Tobacco/Smoking Status: Tobacco use Status Tobacco use date assessed 02/01/23 02/01/23 12:49 Patient Tobacco Use Status Never used Tobacco 02/01/23 12:49 e-Cigarette/Vaping Use Never Used 02/01/23 12:43 Thrive Assessment: Date of Thrive Assessment Date Thrive assessed 08/06/22 02/01/23 12:43 Const General: no acute distress HENMT Throat: Yes posterior oropharynx normal Resp Effort & Inspection: normal respiratory effort Auscultation: clear to auscultation bilaterally Cardio Rhythm: regular rhythm Heart sounds: S1 normal heart sound present and S2 normal heart sound present GI Inspection: Yes normal to inspection Percussion: Yes normal to percussion Auscultation: normal bowel sounds Assessment and Plan Assessment & Plan (1) Allergic rhinitis: Code(s): J30.9 - Allergic rhinitis, unspecified Plan: Continue montelukast and Claritin, referred to costume technician for testing (2) Asthma: Comment: SHE HAS ASTHMA/ COPD OVERLAP SYNDROME. OVER THE PAST MANY YEARS IT HAS CHANGED MOSTLY INTO COPD TREATMENT NOTED UNDER COPD . STAYING VERY STABLE . Code(s): J45.909 - Unspecified asthma, uncomplicated Plan: Continue current medications (3) Osteoporosis: Comment: took Alendronate for>5 yes, stopped 11/2019, DEXA 03/2020 T score -3.8 L spine, Pt cannot afford Prolia, DEXA 09/04 Tscore-4.6 Code(s): M81.0 - Age-related osteoporosis without current pathological fracture Plan: For worsening osteoporosis Prolia prescription is sent to the pharmacy to check if patient can afford the co-pay, continue vitamin-D regular exercise (4) Hyperlipidemia: Code(s): E78.5 - Hyperlipidemia, unspecified Plan: Continue statin Orders: Orders Lipid Panel 6 Months E78.5 - Hyperlipidemia, unspecified, J45.909 - Unspecified asthma, uncomplicated, Z00.00 - Encounter for general adult medical examination without abnormal findings Complete Blood Count Auto Diff 6 Months E78.5 - Hyperlipidemia, unspecified, J45.909 - Unspecified asthma, uncomplicated, Z00.00 - Encounter for general adult medical examination without abnormal findings Vitamin D 25-OH Total 6 Months E78.5 - Hyperlipidemia, unspecified, J45.909 - Unspecified asthma, uncomplicated, Z00.00 - Encounter for general adult medical examination without abnormal findings Comprehensive [place]. Panel Fast 6 Months E78.5 - Hyperlipidemia, unspecified, J45.909 - Unspecified asthma, uncomplicated, Z00.00 - Encounter for general adult medical examination without abnormal findings Referrals Allergy & Immunology Referral J30.9 - Allergic rhinitis, unspecified, J45.909 - Unspecified asthma, uncomplicated Medications: New Prolia (denosumab) 60 mg subcut [id number] 1 mL 1RF NS Coding Level of Care Code Est Pt Level 4 (59126) Diagnoses Allergic rhinitis J30.9 Asthma J45.909 Osteoporosis M81.0 Hyperlipidemia E78.5
== END 2023-02-01 13:21 | disposition home or self-care (01) ==
PROVIDERS: Visit Provider Internal Medicine
DX: J30.9 Allergic rhinitis, unspecified (principal); J45.909 Unspecified asthma, uncomplicated; M81.0 Age-related osteoporosis without current pathological fracture; E78.5 Hyperlipidemia, unspecified
CPT/HCPCS: 99214

== ENCOUNTER 2023-02-09 13:52 | Outpatient (AMB) | payer MEDICARE, SELFPAY ==
[2023-02-09 13:59] VITALS: BP 120/70; PULSE 98; TEMP 36.5; O2SAT 96
--- NOTE | 2023-02-09 13:59 | MHC.OFFVIS ---
Intake Vital Signs 02/09/23 13:59 Height 4 ft 11 in BP 120/70 Blood Pressure Location Lt brachial Position Sitting Pulse 98 Pulse Source Pulse Oximeter Temp 97.7 F Pulse Oximetry (%) 96 Oxygen Delivery Method Room Air Intake Visit Reasons: Sick visit (adolescent/adult) Intake Note: pt is here for sick visit and has not been feeling well since Wednesday, coughing up yellow phelgm, wheezy and short of breath. 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: No Allergies No Known Allergies Allergy (Verified 02/09/23 14:19) Medication List - Last Reconciled 02/09/23 by Radha Mendez MD albuterol sulfate 90 mcg/actuation 2 puffs inhalation Q6H PRN budesonide 0.5 mg (2 mL) inhalation BID cholecalciferol (vitamin D3) 50 mcg PO DAILY ipratropium-albuterol 0.5 mg-3 mg(2.5 mg base)/3 mL 1.5 mL inhalation BID 90 days loratadine (Claritin) 10 mg PO DAILY montelukast 10 mg PO DAILY pravastatin 20 mg PO DAILY Prolia (denosumab) 60 mg subcut [id number] NS theophylline ER 300 mg PO DAILY Do you need a note to return to daycare/school/sports/work: No HPI Sick visit (adolescent/adult) HPI Details Georgie is here for an. Urgent visit She gets sick next day after Thanksgiving. . She checked negative for COVID She is coughing up bringing up yellowish phlegm and feels short of breath and wheezy. No fever or chills . [facility] Medical History Multiple lipomas Vitamin D deficiency Annual physical exam COPD exacerbation Mammogram normal Osteoporosis Hyperlipidemia Asthma COPD (chronic obstructive pulmonary disease) Surgical History S/P excision of lipoma (~09/29/22) S/P GURINDER (total abdominal hysterectomy) H/O: hysterectomy H/O colonoscopy Family History Father Stroke Mother Heart problem Sister Breast cancer Social History Housing: House Alcohol intake: never Patient Tobacco Use Status: Former Tobacco user Non Cigarette Tobacco use how lon Non Cigarette Tobacco use Quit date or years: 1995 e-Cigarette/Vaping Use: Never Used Second Hand Smoke Exposure: No Current occupational status: retired Cognitive needs: No Hearing needs: No Vision needs: No Review of Systems Const All systems reviewed & are unremarkable except as noted in HPI and below Eyes Reports no additional complaints ENT Reports nasal congestion (Mild intermittent, mostly due to change in the weather) Card Denies chest pain, Denies irregular heart rhythm and Denies leg edema Resp Reports as per HPI GI Reports no additional complaints Reports no additional complaints Musc Reports back pain (Mild, not active) Skin/Breast Reports system reviewed and no additional complaints, except as documented Neuro Reports no additional complaints Psych Reports no additional complaints Physical Exam Vital Signs: Last Vital Signs Temp 97.7 F 02/09/23 13:59 Pulse 98 02/09/23 13:59 BP 120/70 02/09/23 13:59 Pulse Ox 96 02/09/23 13:59 Oxygen Delivery Method Room Air 02/09/23 13:59 Const General: comfortable, no acute distress, alert and awake Orientation/consciousness: patient oriented x3 HEENT Head: Yes normal to inspection General nose exam: No nasal polyps present and No nasal discharge present Face and sinus: Yes sinuses nontender Mouth: oropharynx normal Throat: Yes posterior oropharynx normal Eyes General: appearance normal, both eyes and all related structures Neck Neck: Yes normal visual inspection, Yes no lymphadenopathy, Yes trachea midline and Yes no JVD Thyroid: Thyroid normal Chest Chest palpation & inspection: normal inspection of the chest, normal palpation of entire chest wall, no tenderness and other (Has increased AP diameter of the chest) Resp Other: Percussion note hyper-resonant, breath sounds are equal on both sides, moderately distant with prolonged expiratory phase. She has loud expiratory wheezes on both sides of the chest. Cardio Palpation: normal PMI Rate: regular rate Rhythm: regular rhythm Heart sounds: no gallops and no murmurs Peripheral pulses: Peripheral pulses 2+ throughout GI Palpation (GI): Soft to palpation, nontender, No hepatosplenomegaly present and no masses Auscultation: normal bowel sounds Back/Spine/Pelvis Thoracic/Lumbar Spine: thoracic and lumbar spine normal to inspection and thoraco-lumbar ROM limited Skin General skin exam: no rashes or lesions noted Neuro General: patient oriented x3 and no focal motor deficits Cranial nerves: Yes CN's II-XII intact bilaterally Extrem General: Yes normal to inspection, Yes no clubbing, cyanosis or edema and Yes no calf tenderness Psych Appearance: grossly normal and well kempt Speech and movement: Normal speech and movement present Assessment & Plan Assessment & Plan (1) COPD exacerbation: Comment: Acute exacerbation of COPD, Secondary to acute viral respiratory infection. [place] : PREDNISONE 40 MG DAILY FOR 5 DAYS. DOXYCYCLINE 100 B.I.D. FOR 10 DAYS. CONTINUE REGULAR MEDICAL REGIMEN. Code(s): J44.1 - Chronic obstructive pulmonary disease with (acute) exacerbation (2) Asthma: Comment: SHE HAS ASTHMA/ COPD OVERLAP SYNDROME. OVER THE PAST MANY YEARS IT HAS CHANGED MOSTLY INTO COPD TREATMENT NOTED UNDER COPD . STAYING VERY STABLE . Code(s): J45.909 - Unspecified asthma, uncomplicated (3) Allergic rhinitis: Comment: CHRONIC ALLERGIC TYPE OF RHINITIS. CONTROLLED WITH MONTELUKAST 10 MG DAILY, AND CLARITIN 10 MG P.R.N.. Code(s): J30.9 - Allergic rhinitis, unspecified Medications: New prednisone 20 mg PO BID 10 tabs 1RF COPD EXCARBATION 5 days doxycycline hyclate 100 mg PO BID 20 tabs 0RF BRONCHITIS 10 days Coding Level of Care Code Est Pt Level 3 (92449) Diagnoses COPD exacerbation J44.1 Asthma J45.909 Allergic rhinitis J30.9
== END 2023-02-09 14:18 | disposition home or self-care (01) ==
PROVIDERS: PCP Internal Medicine; Visit Provider Internal Medicine
DX: J44.1 Chronic obstructive pulmonary disease with (acute) exacerbation (principal); J45.909 Unspecified asthma, uncomplicated; J30.9 Allergic rhinitis, unspecified
CPT/HCPCS: 99213

== ENCOUNTER → 2023-02-09 13:52 | Outpatient (BNVA) | payer MEDICARE, SELFPAY | PROVIDERS: PCP Internal Medicine; Visit Provider Internal Medicine | DX: J44.1 Chronic obstructive pulmonary disease with (acute) exacerbation (principal); J45.909 Unspecified asthma, uncomplicated | CPT/HCPCS: 99212 ==

== ENCOUNTER 2023-03-05 14:58 | Outpatient (AMB) | payer MEDICARE, SELFPAY ==
--- NOTE | 2023-03-05 16:58 | AM.OFFVISNUR ---
Intake Intake Visit Reasons: Prolia injection Intake Note: Pt arrived for Prolia injection Allergies No Known Allergies Allergy (Verified 02/09/23 14:19) Office Meds Prolia 60 mg/mL subcutaneous syringe Performing Provider: Emma Pelaez MD Performing Location: [facility] – [place], [place] [facility] Administered by: Sanam Thomas RN on 03/05/23 16:59 Dose Route Admin Location Dispensed Lot Number Expiration Date NDC Software Manager 60 mg subcut left upper arm 1 mL [id number] 08/12/25 15855-496-73 AMGEN Comments: Pt supplied Coding Assessment & Plan Assessment & Plan Orders: Orders AMB Denosumab Injection Patient Supplied Today M81.0 - Age-related osteoporosis without current pathological fracture
== END 2023-03-05 15:16 | disposition home or self-care (01) ==
LOC: HO.HMGC 14:58
PROVIDERS: PCP Internal Medicine; Visit Provider Internal Medicine
DX: M81.0 Age-related osteoporosis without current pathological fracture (principal)
CPT/HCPCS: 96372; J0897

== ENCOUNTER 2023-05-04 13:14 | Outpatient (AMB) | payer MEDICARE, SELFPAY ==
--- NOTE | 2023-05-04 13:24 | MHC.OFFVIS ---
Intake Vital Signs 05/04/23 13:25 Height 4 ft 11 in Weight 148 lb 12.992 oz BMI 30.1 BP 112/70 Blood Pressure Location Lt brachial Position Sitting Pulse 75 Pulse Source Pulse Oximeter Pulse Oximetry (%) 97 Oxygen Delivery Method Room Air Intake Visit Reasons: copd Intake Note: pt is here for follow up and she is feeling better. 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: No Allergies No Known Allergies Allergy (Verified 05/04/23 13:56) Medication List - Last Reconciled 05/04/23 by Radha Mendez MD albuterol sulfate 90 mcg/actuation 2 puffs inhalation Q6H PRN budesonide 0.5 mg (2 mL) inhalation BID cholecalciferol (vitamin D3) 50 mcg PO DAILY ipratropium-albuterol 0.5 mg-3 mg(2.5 mg base)/3 mL 3 mL inhalation BID loratadine (Claritin) 10 mg PO DAILY montelukast 10 mg PO DAILY pravastatin 20 mg PO DAILY Prolia (denosumab) 60 mg subcut [id number] theophylline ER 300 mg PO DAILY Do you need a note to return to daycare/school/sports/work: No HPI copd HPI Details CHRISTINE IS 57 YEARS OLD PATIENT, WHO HAS TURNED TO BE A GRANDMA. SHE HAS LONGSTANDING ASTHMA/ CHRONIC OBSTRUCTIVE PULMONARY DISEASE, WHICH IS NOW UNDER. GOOD CONTROL SINCE HER LAST VISIT 2 MONTHS AGO HER ACUTE EXACERBATION WAS TREATED AND SHE FEELS EVEN BETTER AFTER THAT. SHE DOES HAVE MILD INTERMITTENT COUGH AND GETS SHORT OF BREATH IF SHE HAS TO DO HEAVY PHYSICAL WORK, . THIS IS ARE BASELINE DENIES ANY OTHER SIGNIFICANT SYMPTOMS. [facility] Medical History Multiple lipomas Vitamin D deficiency Annual physical exam COPD exacerbation Mammogram normal Osteoporosis Hyperlipidemia Asthma COPD (chronic obstructive pulmonary disease) Surgical History S/P excision of lipoma (~09/29/22) S/P GURINDER (total abdominal hysterectomy) H/O: hysterectomy H/O colonoscopy Family History Father Stroke Mother Heart problem Sister Breast cancer Social History Housing: House Alcohol intake: never Patient Tobacco Use Status: Former Tobacco user e-Cigarette/Vaping Use: Never Used Second Hand Smoke Exposure: No Current occupational status: retired Cognitive needs: No Hearing needs: No Vision needs: No Review of Systems Const All systems reviewed & are unremarkable except as noted in HPI and below Eyes Reports no additional complaints ENT Reports nasal congestion (Mild intermittent, mostly due to change in the weather) Card Denies chest pain, Denies irregular heart rhythm and Denies leg edema Resp Reports as per HPI GI Reports no additional complaints Reports no additional complaints Musc Reports back pain (Mild, not active) Skin/Breast Reports system reviewed and no additional complaints, except as documented Neuro Reports no additional complaints Psych Reports no additional complaints Physical Exam Vital Signs: Last Vital Signs Pulse 75 05/04/23 13:25 BP 112/70 05/04/23 13:25 Pulse Ox 97 05/04/23 13:25 Oxygen Delivery Method Room Air 05/04/23 13:25 BMI result Body Mass Index 30.1 Const General: comfortable, no acute distress, alert and awake Orientation/consciousness: patient oriented x3 HEENT Head: Yes normal to inspection General nose exam: No nasal polyps present and No nasal discharge present Face and sinus: Yes sinuses nontender Mouth: oropharynx normal Throat: Yes posterior oropharynx normal Eyes General: appearance normal, both eyes and all related structures Neck Neck: Yes normal visual inspection, Yes no lymphadenopathy, Yes trachea midline and Yes no JVD Thyroid: Thyroid normal Chest Chest palpation & inspection: normal inspection of the chest, normal palpation of entire chest wall, no tenderness and other (Has increased AP diameter of the chest) Resp Other: Percussion note hyper-resonant, breath sounds are equal on both sides, moderately distant with prolonged expiratory phase. No wheezes or. Rhonchi are heard today. Lungs are very clear. Cardio Palpation: normal PMI Rate: regular rate Rhythm: regular rhythm Heart sounds: no gallops and no murmurs Peripheral pulses: Peripheral pulses 2+ throughout GI Palpation (GI): Soft to palpation, nontender, No hepatosplenomegaly present and no masses Auscultation: normal bowel sounds Back/Spine/Pelvis Thoracic/Lumbar Spine: thoracic and lumbar spine normal to inspection and thoraco-lumbar ROM limited Skin General skin exam: no rashes or lesions noted Neuro General: patient oriented x3 and no focal motor deficits Cranial nerves: Yes CN's II-XII intact bilaterally Extrem General: Yes normal to inspection, Yes no clubbing, cyanosis or edema and Yes no calf tenderness Psych Appearance: grossly normal and well kempt Speech and movement: Normal speech and movement present Assessment & Plan Assessment & Plan (1) Asthma: Comment: SHE HAS ASTHMA/ COPD OVERLAP SYNDROME. OVER THE PAST MANY YEARS IT HAS CHANGED MOSTLY INTO COPD TREATMENT NOTED UNDER COPD . STAYING VERY STABLE . Code(s): J45.909 - Unspecified asthma, uncomplicated Plan: see below under copd (2) COPD (chronic obstructive pulmonary disease): Comment: She does have moderately advanced chronic obstructive pulmonary disease But remains stable and doing well. Code(s): J44.9 - Chronic obstructive pulmonary disease, unspecified Plan: TX: CONTINUE DUONEB UPDRAFTS Q 6 HOURS WHILE AWAKE. CONTINUE BUDESONIDE 0.5 MG SUSPENSION IN UPDRAFT B.I.D. CONTINUE MONTELUKAST 10 MG DAILY. CONTINUE THEOPHYLLINE ER 300 MG ONCE A DAY. PROAIR 2 PUFFS Q.4 HOURS ONLY P.R.N. (3) Allergic rhinitis: Comment: CHRONIC ALLERGIC TYPE OF RHINITIS. CONTROLLED WITH MONTELUKAST 10 MG DAILY, AND CLARITIN 10 MG P.R.N.. Code(s): J30.9 - Allergic rhinitis, unspecified Plan: continue to use , MONTELUKAST 10 MG DAILY, AND CLARITIN 10 MG ONCE A DAY P.R.N.. Coding Level of Care Code Est Pt Level 3 (57172) Diagnoses Asthma J45.909 COPD (chronic obstructive pulmonary disease) J44.9 Allergic rhinitis J30.9
[2023-05-04 13:25] VITALS: BP 112/70; PULSE 75; O2SAT 97; BMI 30.1
== END 2023-05-04 13:57 | disposition home or self-care (01) ==
PROVIDERS: PCP Internal Medicine; Visit Provider Internal Medicine
DX: J45.909 Unspecified asthma, uncomplicated (principal); J44.9 Chronic obstructive pulmonary disease, unspecified; J30.9 Allergic rhinitis, unspecified
CPT/HCPCS: 99213

== ENCOUNTER → 2023-05-04 13:14 | Outpatient (BNVA) | payer MEDICARE, SELFPAY | PROVIDERS: PCP Internal Medicine; Visit Provider Internal Medicine | DX: J45.909 Unspecified asthma, uncomplicated (principal); J44.9 Chronic obstructive pulmonary disease, unspecified | CPT/HCPCS: 99212 ==

== ENCOUNTER 2023-08-11 12:54 | Outpatient (AMB) | payer MEDICARE, SELFPAY ==
[2023-08-11 13:00] VITALS: BP 108/72; PULSE 69; O2SAT 97; BMI 29.1
--- NOTE | 2023-08-11 13:00 | A.OFFPC_ITS ---
Vital Signs 08/11/23 13:00 Height 4 ft 11 in Weight 144 lb BMI 29.1 BP 108/72 Blood Pressure Location Lt brachial Position Sitting Pulse 69 Pulse Source Pulse Oximeter Pulse Oximetry (%) 97 Oxygen Delivery Method Room Air Intake Visit Reasons: PE Intake Note: Pt is here today for PE. Allergies No Known Allergies Allergy (Verified 08/11/23 13:01) Medication List - Last Reconciled 08/11/23 by Emma Pelaez MD albuterol sulfate 90 mcg/actuation 2 puffs inhalation Q6H PRN budesonide 0.5 mg (2 mL) inhalation BID cholecalciferol (vitamin D3) 50 mcg PO DAILY ipratropium-albuterol 0.5 mg-3 mg(2.5 mg base)/3 mL 3 mL inhalation BID loratadine (Claritin) 10 mg PO DAILY montelukast 10 mg PO DAILY pravastatin 20 mg PO DAILY Prolia (denosumab) 60 mg subcut [id number] NS theophylline ER 300 mg PO DAILY Tobacco use date assessed: 08/11/23 Fall risk assessment: No Falls in past year Last assessed Fall Risk: 08/11/23 Dental Screening Dental Screen Date: 08/11/23 Did you have a dental visit in the last 12 months?: Yes Did you have a dental problem in the last 6 months where you did not have access to dental care?: No Was dental information given to patient?: Patient has dentist HPI PE HPI Details Patient presents for physical. She complains of 2 days of increased wheezing coughing worse when spending time outside. She denies sputum pro duction sore throat fever chills night sweats. PFSH Medical History Multiple lipomas Vitamin D deficiency Annual physical exam COPD exacerbation Mammogram normal Osteoporosis Hyperlipidemia Asthma COPD (chronic obstructive pulmonary disease) Surgical History S/P excision of lipoma (~09/29/22) S/P GURINDER (total abdominal hysterectomy) H/O: hysterectomy H/O colonoscopy Family History Father Stroke Mother Heart problem Sister Breast cancer Social History (Reviewed 08/11/23 @ 13:08 by DENISHA Palomo Housing: House Alcohol intake: never Patient Tobacco Use Status: Former Tobacco user e-Cigarette/Vaping Use: Never Used Second Hand Smoke Exposure: No service: No Current occupational status: retired Cognitive needs: No Hearing needs: No Vision needs: No Questionnaire PHQ-9 Over the last 2 weeks, how often have you been bothered by any of the following problems? 1. Little interest or pleasure in doing things: not at all 2. Feeling down, depressed, or hopeless: not at all 3. Trouble falling or staying asleep, or sleeping too much: not at all 4. Feeling tired or having little energy: not at all 5. Poor appetite or overeating: not at all 6. Feeling bad about yourself - or that you are a failure or have let yourself or your family down: not at all 7. Trouble concentrating on things, such as reading the newspaper or watching television: not at all 8. Moving or speaking so slowly that other people could have noticed. Or the opposite - being so fidgety or restless that you have been moving around a lot more than usual: not at all 9. Thoughts that you would be better off or of hurting yourself in some way: not at all Total score: 0 Depression Screening Interpretation: Negative Depression Screening Done: Yes Source: Developed by Drs. Alex Walton, Julia Tavares, Darshan Nichole and colleagues, with an educational angel from [employer]. Thrive Questionnaire Date Thrive assessed: 08/11/23 I am a: Patient What is your living situation today?: I have a steady place to live Within the past 12 months, did the food you bought not last and you didn't have the money to get more?: Never true Within the past 12 months, did you worry whether your food would run out before you got money to buy more?: Never true Do you have trouble paying for medicines?: No Do you have trouble getting transportation to medical appointments?: No Do you have trouble paying your heating and electricity bill?: No Do you have trouble taking care of your child, family member or friend?: No Do you have trouble with day-to-day activities such as bathing, preparing meals, shopping, managing finances, etc.?: No Are you currently unemployed and looking for a job?: No Are you interested in more education?: No Please select the resources that you would like help with: None THRIVE Score: 0 AUDIT C Alcohol Use Questionnaire (AUDIT-C) 1. How often do you have a drink containing alcohol?: Never 3. How often do you have six or more drinks on one occasion?: Never Total Score: 0 CHICA-7 AMB Questionnaire CHICA-7 Date CHICA - 7 assessed: 08/11/23 Feeling nervous, anxious, or on edge: 0 = Not at all Not being able to stop or control worryin = Not at all Worrying too much about different things: 0 = Not at all Trouble relaxin = Not at all Being so restless that it is hard to sit still: 0 = Not at all Becoming easily annoyed or irritable: 0 = Not at all Feeling afraid as if something awful might happen: 0 = Not at all Total CHICA-7 score (0-4 normal; 5-9 mild; 10-14 moderate; 15-21 severe): 0 Source: Developed by Drs. Alex Walton, Julia Tavares, Darshan Nichole and colleagues, with an educational angel from [employer]. Review of Systems Const All systems reviewed & are unremarkable except as noted in HPI and below Eyes Reports no additional complaints ENT Reports no additional complaints Card Reports no additional complaints Resp Reports no additional complaints GI Reports no additional complaints Reports no additional complaints Physical exam (Primary Care) Vital Signs: Last Vital Signs Pulse 69 08/11/23 13:00 BP 108/72 08/11/23 13:00 Pulse Ox 97 08/11/23 13:00 Oxygen Delivery Method Room Air 08/11/23 13:00 BMI result Body Mass Index 29.1 Tobacco/Smoking Status: Tobacco use Status Tobacco use date assessed 08/11/23 08/11/23 13:04 Patient Tobacco Use Status Former Tobacco user 08/11/23 13:04 e-Cigarette/Vaping Use Never Used 08/11/23 13:01 PHQ-9: PHQ-9 Score PHQ-9: Total score 0 08/11/23 13:09 Depression Screening Interpretation: Negative Thrive Assessment: Date of Thrive Assessment Date Thrive assessed 08/11/23 08/11/23 13:09 Const General: no acute distress HENMT Ears: hearing grossly normal bilaterally General nose exam: Normal external nose present Throat: Yes posterior oropharynx normal Eyes General: appearance normal, both eyes and all related structures Neck Neck: Yes no lymphadenopathy and Yes supple Resp Effort & Inspection: normal respiratory effort Auscultation: wheezes and diminished lung sounds Cardio Rhythm: regular rhythm Heart sounds: S1 normal heart sound present and S2 normal heart sound present GI Inspection: Yes normal to inspection Palpation (GI): Soft to palpation Percussion: Yes normal to percussion Auscultation: normal bowel sounds Assessment and Plan Assessment & Plan (1) Allergic rhinitis: Comment: CHRONIC ALLERGIC TYPE OF RHINITIS. CONTROLLED WITH MONTELUKAST 10 MG DAILY, AND CLARITIN 10 MG P.R.N.. Code(s): J30.9 - Allergic rhinitis, unspecified Plan: Continue current treatment patient has an appointment with academic support coordinator (2) COPD exacerbation: Comment: Acute exacerbation of COPD, Secondary to acute viral respiratory infection. [place] : PREDNISONE 40 MG DAILY FOR 5 DAYS. DOXYCYCLINE 100 B.I.D. FOR 10 DAYS. CONTINUE REGULAR MEDICAL REGIMEN. Code(s): J44.1 - Chronic obstructive pulmonary disease with (acute) exacerbation Plan: Prednisone 40 mg for 3 days followed by 20 mg for 3 days as prescribed and supportive care discussed with the patient. Budesonide will be increased to 1 mg twice a day inhalation and patient will continue DuoNeb 4 times a day. She follows up with telegraph plant maintainer every 3 months (3) Annual physical exam: Code(s): Z00.00 - Encounter for general adult medical examination without abnormal findings Plan: Well-balanced diet regular physical activity discussed with the patient. She has up-to-date with the mammogram and declined colonoscopy. Cologuard will be sent (4) Asthma: Comment: SHE HAS ASTHMA/ COPD OVERLAP SYNDROME. OVER THE PAST MANY YEARS IT HAS CHANGED MOSTLY INTO COPD TREATMENT NOTED UNDER COPD . STAYING VERY STABLE . Code(s): J45.909 - Unspecified asthma, uncomplicated (5) Osteoporosis: Comment: took Alendronate for>5 yes, stopped 11/2019, DEXA 03/2020 T score -3.8 L spine, DEXA 09/04 Tscore-4.6 in AP spine, started Prolia 03/06 Code(s): M81.0 - Age-related osteoporosis without current pathological fracture Plan: Continue vitamin-D and Prolia for a total of 2 years followed a repeat DEXA Orders: Orders Complete Blood Count Auto Diff 1 Year E55.9 - Vitamin D deficiency, unspecified, E78.5 - Hyperlipidemia, unspecified, J45.909 - Unspecified asthma, uncomplicated, M81.0 - Age-related osteoporosis without current pathological fracture, Z00.00 - Encounter for general adult medical examination without abnormal findings Vitamin D 25-OH Total 1 Year E55.9 - Vitamin D deficiency, unspecified, E78.5 - Hyperlipidemia, unspecified, J45.909 - Unspecified asthma, uncomplicated, M81.0 - Age-related osteoporosis without current pathological fracture, Z00.00 - Encounter for general adult medical examination without abnormal findings Parathyroid Hormone Intact 1 Year E55.9 - Vitamin D deficiency, unspecified, E78.5 - Hyperlipidemia, unspecified, J45.909 - Unspecified asthma, uncomplicated, M81.0 - Age-related osteoporosis without current pathological fracture, Z00.00 - Encounter for general adult medical examination without abnormal findings Lipid Panel 1 Year E55.9 - Vitamin D deficiency, unspecified, E78.5 - Hyperlipidemia, unspecified, J45.909 - Unspecified asthma, uncomplicated, M81.0 - Age-related osteoporosis without current pathological fracture, Z00.00 - Encounter for general adult medical examination without abnormal findings Comprehensive [place]. Panel Fast 1 Year E55.9 - Vitamin D deficiency, unspecified, E78.5 - Hyperlipidemia, unspecified, J45.909 - Unspecified asthma, uncomplicated, M81.0 - Age-related osteoporosis without current pathological fracture, Z00.00 - Encounter for general adult medical examination without abnormal findings TSH reflex Free T4 1 Year E55.9 - Vitamin D deficiency, unspecified, E78.5 - Hyperlipidemia, unspecified, J45.909 - Unspecified asthma, uncomplicated, M81.0 - Age-related osteoporosis without current pathological fracture, Z00.00 - Encounter for general adult medical examination without abnormal findings Referrals Cologuard Test Z12.11 - Encounter for screening for malignant neoplasm of colon, Z12.12 - Encounter for screening for malignant neoplasm of rectum Medications: New budesonide 1 mg (2 mL) inhalation BID 180 mL 1RF prednisone 2 tabl qd x 3 days, then 1 tabl qd x 3 days 20 mg PO DAILY 9 tabs 0RF Refilled Prolia (denosumab) 60 mg subcut [id number] 1 mL 1RF NS Discontinued budesonide Discontinued Reason: Change Referral Type 0.5 mg (2 mL) inhalation BID 180 mL 2RF J44.9 - Chronic obstructive pulmonary disease, unspecified Coding Level of Care Code Est Pt Prev Care >65y(15172) Diagnoses Allergic rhinitis J30.9 COPD exacerbation J44.1 Annual physical exam Z00.00 Asthma J45.909 Osteoporosis M81.0
== END 2023-08-11 13:55 | disposition home or self-care (01) ==
PROVIDERS: Visit Provider Internal Medicine
DX: Z00.00 Encounter for general adult medical examination without abnormal findings (principal); J30.9 Allergic rhinitis, unspecified; J44.1 Chronic obstructive pulmonary disease with (acute) exacerbation; J45.909 Unspecified asthma, uncomplicated; M81.0 Age-related osteoporosis without current pathological fracture
CPT/HCPCS: 99397

== ENCOUNTER 2023-08-11 13:29 | Outpatient (REF) | payer MEDICARE, SELFPAY ==
[2023-08-11 16:26] LABS: MANUAL DIFF FLAG NO
[2023-08-11 16:52] LABS: Basophils Percent Auto 0.9 % (0-2); Eosinophils Absolute Auto 0.4 X10*3/uL (0.0-0.4); Eosinophils Percent Auto 9.2 % (0-4); Hematocrit 42.4 % (37.0-47.0); Hemoglobin 13.8 g/dl (12.0-16.0); Imm Gran Abs Auto 0.01 X10*3/uL (0.00-0.03); Imm Gran Pct Auto 0.2 % (0.0-0.4); Lymphocytes Absolute Auto 1.8 X10*3/uL (1.2-4.9); Mean Corpuscular HGB Conc 32.5 g/dl (31.0-35.0); Mean Corpuscular Hemoglobin 29.3 pg (27.0-33.0); Mean Platelet Volume 9.8 fL (9.4-12.3); Monocytes Absolute Auto 0.4 X10*3/uL (0.1-1.2); Monocytes Percent Auto 7.9 % (2-11); Neutrophils Percent Auto 42.8 % (45-73); Platelet Count 241 X10*3/uL (160-400); Red Blood Count 4.71 X10*6/uL (4.20-5.50); Red Cell Distribution Width 13.5 % (11.0-16.0); White Blood Count 4.6 X10*3/uL (4.8-10.8)
[2023-08-11 17:12] LABS: Alanine Aminotransferase 14 U/L (0-31); Albumin Level 4.2 g/dL (3.5-5.0); Alkaline Phosphatase 76 U/L (39-117); Anion Gap 11 (12-20); Aspartate Amino Transferase 18 U/L (5-31); Bilirubin Total 0.5 mg/dL (0.0-1.0); Blood Urea Nitrogen 19 mg/dL (9-16); Calcium 8.9 mg/dL (8.4-10.2); Carbon Dioxide 23 mmol/L (22-29); Chloride 112 mmol/L (96-108); Cholesterol 174 mg/dL (<200); Estimated Glomerular Filt Rate > 60; Glucose Fasting 75 mg/dL (60-99); HDL Cholesterol 51 mg/dL (>40); LDL Cholesterol Calculated 103 mg/dL (<100); Sodium 142 mmol/L (135-145); Total Protein 7.1 g/dL (6.5-8.0); Triglycerides 102 mg/dL (<150)
[2023-08-11 17:29] LABS: Vitamin D 25-OH Total 46.9 ng/mL (>30)
== END 2023-08-11 13:30 | disposition home or self-care (01) ==
LOC: HO.HMGCLDS 13:29
PROVIDERS: PCP Internal Medicine; Visit Provider Internal Medicine
DX: Z00.00 Encounter for general adult medical examination without abnormal findings (principal); J45.909 Unspecified asthma, uncomplicated; M81.0 Age-related osteoporosis without current pathological fracture; E78.5 Hyperlipidemia, unspecified; E55.9 Vitamin D deficiency, unspecified
CPT/HCPCS: 36415; 80053; 80061; 82306; 85025

== ENCOUNTER 2023-08-13 14:44 | Outpatient (REF) | payer MEDICARE, SELFPAY | END 2023-08-13 14:45 | disposition home or self-care (01) | LOC: HO.MAMMO 14:44 | PROVIDERS: PCP Internal Medicine; Visit Provider Internal Medicine | DX: Z12.31 Encounter for screening mammogram for malignant neoplasm of breast (principal) | CPT/HCPCS: 77063; 77067 ==

== ENCOUNTER → 2023-08-13 15:00 | Outpatient (BNV) | payer MEDICARE, SELFPAY | PROVIDERS: PCP Internal Medicine; Visit Provider Radiology Diagnostic Radiology | DX: Z12.31 Encounter for screening mammogram for malignant neoplasm of breast (principal) | CPT/HCPCS: 77063; 77067 ==

== ENCOUNTER 2023-09-14 12:59 | Outpatient (AMB) | payer MEDICARE, SELFPAY ==
--- NOTE | 2023-09-14 13:24 | AM.OFFVISNUR ---
Intake Visit Reasons: Prolia injection Intake Note: Pt arrived for 6 month Prolia injection Allergies No Known Allergies Allergy (Verified 08/11/23 13:01) Office Meds Prolia 60 mg/mL subcutaneous syringe Performing Provider: Emma Pelaez MD Performing Location: [facility] Administered by: Sanam Thomas RN on 09/14/23 13:34 Dose Route Admin Location Dispensed Lot Number Expiration Date NDC Pattern[employer] 60 mg subcut left upper arm 1 mL [id number] 01/12/26 17946-455-94 AMGEN Comments: Pt supplied Assessment & Plan Assessment & Plan Orders: Orders AMB Denosumab Injection Patient Supplied Today M81.0 - Age-related osteoporosis without current pathological fracture Medications: New Prolia (denosumab) 60 mg subcut ONCE 1 mL 0RF NS M81.0 - Age-related osteoporosis without current pathological fracture
== END 2023-09-14 13:54 | disposition home or self-care (01) ==
PROVIDERS: PCP Internal Medicine; Visit Provider Internal Medicine
DX: M81.0 Age-related osteoporosis without current pathological fracture (principal)
CPT/HCPCS: 96372; J0897

== ENCOUNTER 2023-11-03 13:05 | Outpatient (AMB) | payer MEDICARE, SELFPAY ==
[2023-11-03 13:20] VITALS: BP 110/70; PULSE 56; O2SAT 99; BMI 28.7
--- NOTE | 2023-11-03 13:20 | A.OFFVIS_ITS ---
Vital Signs 11/03/23 13:20 Height 4 ft 11 in Weight 142 lb 3.17 oz BMI 28.7 BP 110/70 Blood Pressure Location Lt brachial Position Sitting Pulse 56 Pulse Source Pulse Oximeter Pulse Oximetry (%) 99 Oxygen Delivery Method Room Air Intake Visit Reasons: COPD Intake Note: pt is here for follow up and states she is feeling good, no issues Clinical Lab Specialist Required: No Allergies No Known Allergies Allergy (Verified 11/03/23 13:32) Medication List - Last Reconciled 11/03/23 by Radha Mendez MD albuterol sulfate 90 mcg/actuation 2 puffs inhalation Q6H PRN budesonide 1 mg (2 mL) inhalation BID cholecalciferol (vitamin D3) 50 mcg PO DAILY ipratropium-albuterol 0.5 mg-3 mg(2.5 mg base)/3 mL 3 mL inhalation BID loratadine (Claritin) 10 mg PO DAILY montelukast 10 mg PO DAILY pravastatin 20 mg PO DAILY Prolia (denosumab) 60 mg subcut [id number] NS theophylline ER 300 mg PO DAILY Do you need a note to return to daycare/school/sports/work: No HPI HPI COPD: Details: THE NIECE IS HERE FOR 6 MONTHS FOLLOW-UP. SHE SHE HAS BEEN DOING VERY WELL AND REMAINED STABLE, USING HER MEDICATIONS REGULARLY. DOES HAVE MILD INTERMITTENT NASAL CONGESTION AND HAS TO TAKE CLARITIN ONCE IN A WHILE . SHE HAS HAD NO RESPIRATORY INFECTION OR ACUTE EXACERBATION IN THE LAST 6 MONTHS. [facility] Medical History Multiple lipomas Vitamin D deficiency Annual physical exam COPD exacerbation Mammogram normal Osteoporosis Hyperlipidemia Asthma COPD (chronic obstructive pulmonary disease) Surgical History S/P excision of lipoma (~09/29/22) S/P GURINDER (total abdominal hysterectomy) H/O: hysterectomy H/O colonoscopy Family History Father Stroke Mother Heart problem Sister Breast cancer Social History Housing: House Alcohol intake: never Patient Tobacco Use Status: Former Tobacco user e-Cigarette/Vaping Use: Never Used Second Hand Smoke Exposure: No service: No Current occupational status: retired Cognitive needs: No Hearing needs: No Vision needs: No Review of Systems Const All systems reviewed & are unremarkable except as noted in HPI and below Eyes Reports no additional complaints ENT Reports nasal congestion (Mild intermittent, mostly due to change in the weather) Card Denies chest pain, Denies irregular heart rhythm and Denies leg edema Resp Reports as per HPI GI Reports no additional complaints Reports no additional complaints Musc Reports back pain (Mild, not active) Skin/Breast Reports system reviewed and no additional complaints, except as documented Neuro Reports no additional complaints Psych Reports no additional complaints Physical Exam Vital Signs: Last Vital Signs Pulse 56 11/03/23 13:20 BP 110/70 11/03/23 13:20 Pulse Ox 99 11/03/23 13:20 Oxygen Delivery Method Room Air 11/03/23 13:20 BMI result Body Mass Index 28.7 Const General: comfortable, no acute distress, alert and awake Orientation/consciousness: patient oriented x3 HEENT Head: Yes normal to inspection General nose exam: No nasal polyps present and No nasal discharge present Face and sinus: Yes sinuses nontender Mouth: oropharynx normal Throat: Yes posterior oropharynx normal Eyes General: appearance normal, both eyes and all related structures Neck Neck: Yes normal visual inspection, Yes no lymphadenopathy, Yes trachea midline and Yes no JVD Thyroid: Thyroid normal Chest Chest palpation & inspection: normal inspection of the chest, normal palpation of entire chest wall, no tenderness and other (Has increased AP diameter of the chest) Resp Other: Percussion note hyper-resonant, breath sounds are equal on both sides, moderately distant with prolonged expiratory phase. No wheezes or. Rhonchi are heard today. Lungs are very clear. Cardio Palpation: normal PMI Rate: regular rate Rhythm: regular rhythm Heart sounds: no gallops and no murmurs Peripheral pulses: Peripheral pulses 2+ throughout GI Palpation (GI): Soft to palpation, nontender, No hepatosplenomegaly present and no masses Auscultation: normal bowel sounds Back/Spine/Pelvis Thoracic/Lumbar Spine: thoracic and lumbar spine normal to inspection and thoraco-lumbar ROM limited Skin General skin exam: no rashes or lesions noted Neuro General: patient oriented x3 and no focal motor deficits Cranial nerves: Yes CN's II-XII intact bilaterally Extrem General: Yes normal to inspection, Yes no clubbing, cyanosis or edema and Yes no calf tenderness Psych Appearance: grossly normal and well kempt Speech and movement: Normal speech and movement present Assessment & Plan Assessment & Plan (1) Asthma: Comment: SHE HAS ASTHMA/ COPD OVERLAP SYNDROME. OVER THE PAST MANY YEARS IT HAS CHANGED MOSTLY INTO COPD TREATMENT NOTED UNDER COPD . STAYING VERY STABLE . Code(s): J45.909 - Unspecified asthma, uncomplicated Category: Medical Plan: SEE UNDER COPD (2) COPD (chronic obstructive pulmonary disease): Comment: She does have moderately advanced chronic obstructive pulmonary disease But remains stable and doing well. Code(s): J44.9 - Chronic obstructive pulmonary disease, unspecified Category: Medical Plan: CONTINUE THE PRESENT REGIMEN FOLLOWS: IPRATROPIUM -ALBUTEROL SOLUTION IN THE NEBULIZER Q 6 HOURS WHILE AWAKE. BUDESONIDE 0.5 MG SOLUTION IN THE NEB.ULIZER B.I.D. THEOPHYLLIN ER 300 MG ONCE A DAY ALBUTEROL HFA 2 PUFFS Q 4-6 HOURS P.R.N. WHEN OUTDOORS (3) Allergic rhinitis: Comment: CHRONIC ALLERGIC TYPE OF RHINITIS. CONTROLLED WITH MONTELUKAST 10 MG DAILY, AND CLARITIN 10 MG P.R.N.. Code(s): J30.9 - Allergic rhinitis, unspecified Category: Medical Plan: CONTINUE M.ONTELUKAST 10 MG DAILY CLARITIN 10 MG ONCE A DAY P.R.N. Coding Level of Care Code Est Pt Level 3 (86253) Diagnoses Asthma J45.909 COPD (chronic obstructive pulmonary disease) J44.9 Allergic rhinitis J30.9
== END 2023-11-03 13:41 | disposition home or self-care (01) ==
PROVIDERS: PCP Internal Medicine; Visit Provider Internal Medicine
DX: J45.909 Unspecified asthma, uncomplicated (principal); J44.9 Chronic obstructive pulmonary disease, unspecified; J30.9 Allergic rhinitis, unspecified
CPT/HCPCS: 99213

== ENCOUNTER → 2023-11-03 13:05 | Outpatient (BNVA) | payer MEDICARE, SELFPAY | PROVIDERS: PCP Internal Medicine; Visit Provider Internal Medicine | DX: J44.9 Chronic obstructive pulmonary disease, unspecified (principal); J45.909 Unspecified asthma, uncomplicated | CPT/HCPCS: 99212 ==

== ENCOUNTER 2024-05-02 13:27 | Outpatient (AMB) | payer MEDICARE, SELFPAY ==
[2024-05-02 13:35] VITALS: BP 110/70; PULSE 92; O2SAT 98; BMI 29.4
--- NOTE | 2024-05-02 13:35 | MHC.OFFVIS ---
Vital Signs 05/02/24 13:35 Height 4 ft 11 in Weight 145 lb 8.081 oz BMI 29.4 BP 110/70 Blood Pressure Location Lt brachial Position Sitting Pulse 92 Pulse Source Pulse Oximeter Pulse Oximetry (%) 98 Oxygen Delivery Method Room Air Intake Visit Reasons: COPD Intake Note: pt is here for follow and does have a cough, but she had to walk a distance to get in the hospital. Supply Chain Technician Required: No Allergies No Known Allergies Allergy (Verified 05/02/24 13:41) Medication List - Last Reconciled 05/02/24 by Radha Mendez MD albuterol sulfate 90 mcg/actuation 2 puffs inhalation Q6H PRN budesonide 1 mg (2 mL) inhalation BID cholecalciferol (vitamin D3) 50 mcg PO DAILY fluticasone propionate 50 mcg/actuation (Flonase Allergy Relief) 1 spray intranasal BID ipratropium-albuterol 0.5 mg-3 mg(2.5 mg base)/3 mL 3 mL inhalation BID montelukast 10 mg PO DAILY pravastatin 20 mg PO DAILY Prolia (denosumab) 60 mg subcut [id number] NS theophylline ER 300 mg PO DAILY Do you need a note to return to daycare/school/sports/work: No HPI HPI COPD: Details: Georgie is now 68 years old female. She is coming for her follow-up after 4 months. She is being treated for a lifelong history of bronchial asthma leading to COPD. Her symptoms have been much controlled , since she retired more than 8 years ago. She continues to use budesonide in the nebulizer b.i.d. as well as ipratropium-albuterol treatments, montelukast 10 mg daily and theophylline 300 mg once a day in the morning. This combination has been good for her, and she hardly gets an acute exacerbation. She has some dyspnea on walking fast or going up stairs and also has intermittent cough, as expected. [facility] Medical History Multiple lipomas Vitamin D deficiency Annual physical exam COPD exacerbation Mammogram normal Osteoporosis Hyperlipidemia Asthma COPD (chronic obstructive pulmonary disease) Surgical History S/P excision of lipoma (~09/29/22) S/P GURINDER (total abdominal hysterectomy) H/O: hysterectomy H/O colonoscopy Family History Father Stroke Mother Heart problem Sister Breast cancer Social History Housing: House Alcohol intake: never Patient Tobacco Use Status: Former Tobacco user e-Cigarette/Vaping Use: Never Used Second Hand Smoke Exposure: No service: No Current occupational status: retired Cognitive needs: No Hearing needs: No Vision needs: No Review of Systems Const All systems reviewed & are unremarkable except as noted in HPI and below Eyes Reports no additional complaints ENT Reports nasal congestion (Mild intermittent, mostly due to change in the weather) Card Denies chest pain, Denies irregular heart rhythm and Denies leg edema Resp Reports as per HPI GI Reports no additional complaints Reports no additional complaints Musc Reports back pain (Mild, not active) Skin/Breast Reports system reviewed and no additional complaints, except as documented Neuro Reports no additional complaints Psych Reports no additional complaints Physical Exam Vital Signs: Last Vital Signs Pulse 92 05/02/24 13:35 BP 110/70 05/02/24 13:35 Pulse Ox 98 05/02/24 13:35 Oxygen Delivery Method Room Air 05/02/24 13:35 BMI result Body Mass Index 29.4 Const General: comfortable, no acute distress, alert and awake Orientation/consciousness: patient oriented x3 HEENT Head: Yes normal to inspection General nose exam: No nasal polyps present and No nasal discharge present Face and sinus: Yes sinuses nontender Mouth: oropharynx normal Throat: Yes posterior oropharynx normal Eyes General: appearance normal, both eyes and all related structures Neck Neck: Yes normal visual inspection, Yes no lymphadenopathy, Yes trachea midline and Yes no JVD Thyroid: Thyroid normal Chest Chest palpation & inspection: normal inspection of the chest, normal palpation of entire chest wall, no tenderness and other (Has increased AP diameter of the chest) Resp Other: Percussion note hyper-resonant, breath sounds are equal on both sides, moderately distant with prolonged expiratory phase. No wheezes or. Rhonchi are heard today. Lungs are very clear. Cardio Palpation: normal PMI Rate: regular rate Rhythm: regular rhythm Heart sounds: no gallops and no murmurs Peripheral pulses: Peripheral pulses 2+ throughout GI Palpation (GI): Soft to palpation, nontender, No hepatosplenomegaly present and no masses Auscultation: normal bowel sounds Back/Spine/Pelvis Thoracic/Lumbar Spine: thoracic and lumbar spine normal to inspection and thoraco-lumbar ROM limited Skin General skin exam: no rashes or lesions noted Neuro General: patient oriented x3 and no focal motor deficits Cranial nerves: Yes CN's II-XII intact bilaterally Extrem General: Yes normal to inspection, Yes no clubbing, cyanosis or edema and Yes no calf tenderness Psych Appearance: grossly normal and well kempt Speech and movement: Normal speech and movement present Assessment & Plan Assessment & Plan (1) Allergic rhinitis: Comment: CHRONIC ALLERGIC TYPE OF RHINITIS. CONTROLLED WITH MONTELUKAST 10 MG DAILY, AND CLARITIN 10 MG P.R.N.. Code(s): J30.9 - Allergic rhinitis, unspecified Category: Medical Plan: Montelukast 10 mg once a day. Claritin ( loratadine ) 10 mg once a day p.r.n. (2) Asthma: Comment: SHE HAS ASTHMA/ COPD OVERLAP SYNDROME. OVER THE PAST MANY YEARS IT HAS CHANGED MOSTLY INTO COPD TREATMENT NOTED UNDER COPD . STAYING VERY STABLE . Code(s): J45.909 - Unspecified asthma, uncomplicated Category: Medical Plan: As under COPD (3) COPD (chronic obstructive pulmonary disease): Comment: She does have moderately advanced chronic obstructive pulmonary disease . But remains stable and doing well. Code(s): J44.9 - Chronic obstructive pulmonary disease, unspecified Category: Medical Plan: Ipratropium-albuterol 0.5 mg- 2.5 mg ( 3 ml solution ) in laser Q 6 hours p.r.n. while awake. Budesonide 1 mg solution ( 2 male) via nebulizer b.i.d.. Albuterol HFA 2 puffs q.6 hours p.r.n. Theophylline ER 300 mg once a day in the morning Coding Level of Care Code Est Pt Level 3 (36143) Diagnoses Allergic rhinitis J30.9 Asthma J45.909 COPD (chronic obstructive pulmonary disease) J44.9
== END 2024-05-02 13:50 | disposition home or self-care (01) ==
PROVIDERS: PCP Internal Medicine; Visit Provider Internal Medicine
DX: J30.9 Allergic rhinitis, unspecified (principal); J45.909 Unspecified asthma, uncomplicated; J44.9 Chronic obstructive pulmonary disease, unspecified
CPT/HCPCS: 99213

== ENCOUNTER → 2024-05-02 13:27 | Outpatient (BNVA) | payer MEDICARE, SELFPAY | PROVIDERS: PCP Internal Medicine; Visit Provider Internal Medicine | DX: J44.9 Chronic obstructive pulmonary disease, unspecified (principal); J30.9 Allergic rhinitis, unspecified; Z87.891 Personal history of nicotine dependence | CPT/HCPCS: 99212 ==

== ENCOUNTER 2024-06-05 18:28 | Emergency (ER) | payer MEDICARE, SELFPAY ==
--- NOTE | ~2024-06-05 | XR_ITS ---
CLINICAL HISTORY: cough 1 view chest x-ray Comparison: None Findings: Nonspecific opacity in the medial left lung base. Lungs otherwise clear. No pleural effusion or pneumothorax. Heart size normal. Impression: Nonspecific medial left lung base opacity. Consider CT chest for further evaluation. This document has been electronically signed by: Raj Angel MD on 06/05/2024 20:35:00
--- NOTE | ~2024-06-05 | CT_ITS ---
CLINICAL HISTORY: SOB, cough, unclear consolidation on CXR CT chest with contrast Comparison: None Findings: The heart size is normal. 1.2 cm left thyroid cyst or nodule noted. Pleural-parenchymal scarring is present within the right lung apex. Bronchial wall thickening, bronchiectatic changes and pleural-parenchymal scarring is present within the right lower lobe, inferior right upper lobe, and medial left lung base. 2.8 cm hypodensity in the right hepatic dome demonstrates mild peripheral puddling of contrast, possibly a small hemangioma. There is exaggeration of the normal thoracic kyphosis. There is osseous ankylosis of the midthoracic spine with bridging enthesophytes, changes which can accompany ankylosing spondylitis. Probable peripelvic cysts are noted bilaterally. IMPRESSION: Bronchial wall thickening with scattered areas of bronchiectasis and pleural-parenchymal scarring. This document has been electronically signed by: Osman Case MD, PHD on 06/06/2024 00:22:59
[2024-06-05 18:41] VITALS: BP 109/65; PULSE 94; RESP 18; TEMP 36.8; O2SAT 99; BMI 28.9
--- NOTE | 2024-06-05 18:44 | ED.GENADULT ---
HPI - General Adult General Chief complaint: Upper Respiratory Symptoms Stated complaint: sob,cough hx of copd Time Seen by Provider: 06/05/24 22:58 Source: patient Limitations: no limitations History of Present Illness ED Provider: Jenna Jhaveri NP HPI narrative: Patient is a 68-year-old female who presents emergency department for evaluation she has been having increasing productive cough, shortness of breath and difficulty breathing over the past 4 days. Despite using her home nebulizer treatment, and Mucinex she has not had much improvement. She has intermittent pain in the chest that is exacerbated with cough. Denies at rest without cough. Denies orthopnea or PND. Denies trauma, fevers, chills, sore throat, difficulty swallowing, neck pain, palpitations, nausea, vomiting, abdominal pain, numbness or tingling of the extremities, recent lower extremity pain or swelling. Denies alcohol use, recreational drugso. Related Data Home Medications ?Medication ?Instructions ?Recorded ?Confirmed fluticasone propionate 50 1 spray intranasal BID 05/02/24 mcg/actuation nasal spray,suspension (Flonase Allergy Relief) Previous Rx's ?Medication ?Instructions ?Recorded cholecalciferol (vitamin D3) 50 50 mcg PO DAILY #90 caps 08/07/20 mcg (2,000 unit) capsule albuterol sulfate 90 mcg/actuation 2 puff inhalation Q6H PRN 04/23/21 aerosol inhaler bronchospasm #8.5 grams ipratropium 0.5 mg-albuterol 3 mg 3 ml inhalation BID for wheezing 04/02/23 (2.5 mg base)/3 mL nebulization #630 mL soln budesonide 1 mg/2 mL suspension 1 mg (2 mL) inhalation BID #180 mL 08/11/23 for nebulization Prolia 60 mg/mL subcutaneous 60 mg subcut [id number] #1 mL 09/01/23 syringe (denosumab) montelukast 10 mg tablet 10 mg PO DAILY #90 tabs 12/05/23 pravastatin 20 mg tablet 20 mg PO DAILY #100 tabs 02/08/24 theophylline 300 mg 300 mg PO DAILY #90 tabs 03/17/24 tablet,extended release,12 hr doxycycline hyclate 100 mg tablet 100 mg PO BID #10 tabs 06/06/24 prednisone 20 mg tablet 40 mg (2 x 20 mg) PO DAILY #10 tabs 06/06/24 Allergies Allergy/AdvReac Type Severity Reaction Status Date / Time No Known Allergies Allergy Verified 06/05/24 18:44 Review of Systems Review of Systems: Yes all other systems are reviewed and are negative [facility] Past Medical History Attestation statement: The following information was validated with the patient. Source: old records reviewed Medical History Multiple lipomas Vitamin D deficiency Annual physical exam COPD exacerbation Mammogram normal Osteoporosis Hyperlipidemia Asthma COPD (chronic obstructive pulmonary disease) Surgical History S/P excision of lipoma (~09/29/22) S/P GURINDER (total abdominal hysterectomy) H/O: hysterectomy H/O colonoscopy Family History Family History Father Stroke Mother Heart problem Sister Breast cancer Social History Social History Housing: House Alcohol intake: never Patient Tobacco Use Status: Former Tobacco user Smoked in Last 30 Days: No e-Cigarette/Vaping Use: Never Used Second Hand Smoke Exposure: No Use of substances other than those prescribed or required for medical reasons: No Advance Directives: No Advance Directives Information Provided: Yes service: No Current occupational status: retired Cognitive needs: No Hearing needs: No Vision needs: No Physical Exam ED Vital Signs: Vital Signs - 24 hr 06/05/24 18:41 06/05/24 22:48 06/05/24 23:46 Temperature 98.2 F 97.8 F Pulse Rate 94 86 72 Respiratory Rate 18 18 22 H Blood Pressure 109/65 129/76 Pulse Oximetry 99 98 Oxygen Delivery Method Room Air Room Air 06/06/24 00:10 Temperature 98.3 F Pulse Rate 81 Respiratory Rate 22 H Blood Pressure 121/57 L Pulse Oximetry 97 Oxygen Delivery Method Room Air BMI result Body Mass Index 28.9 Appearance: Alert.?Oriented to person, place and time. No acute distress.?Normal affect. Eyes: Pupils equal, round and reactive to light.? ENT: Pharynx normal.?? Neck: Normal inspection.? Neck supple.?? CVS: Heart sounds normal. Normal heart rate and rhythm.? Pulses normal.?? Respiratory: No respiratory distress.? Lung sounds clear to auscultation bilaterally?? Abdomen: Soft and non-tender. Normoactive bowel sounds. Skin: Skin warm and dry.? Normal skin color.? Extremities: No lower extremity edema.? No calf ttp? Neuro: Moves all extremities spontaneously. Sensation intact bilaterally. No focal neuro deficits. Ambulates with normal steady gait. Course Course Course Narrative: This is a rapid medical exam performed by Bouchra Proctor PA-C. The patient is a 68-year-old female with a history of COPD, asthma, hyperlipidemia who presents with a cough and cold symptoms x3 days. Associated chills, and generalized malaise. Denies fever. On exam, she sounds Gavin rinse with an active wet cough. We will screen basic labs blood cultures, lactic, viral panel and obtain a chest x-ray. The patient was stable and can return to the waiting room pending her full medical assessment. Reevaluation(s) Reevaluation #1: CT with findings concerning for COPD exacerbation, sent prescriptions for prednisone and doxycycline to pharmacy, patient is a will plan of care, strict return precautions discussed, outpatient follow-up with PCP. Medications Administered Discontinued Medications Generic Name Dose Route Start Last Admin Trade Name Freq PRN Reason Stop Dose Admin Albuterol Sulfate 2.5 mg/ 5 mg 06/05/24 23:42 06/05/24 23:43 Albuterol Sulfate 2.5 mg INHALE 06/05/24 23:43 5 mg ONCE ONE Administration Sodium Chloride 1,000 mls @ 999 mls/hr 06/05/24 23:15 06/05/24 23:21 Ns IV 06/06/24 00:15 999 mls/hr .Q1H1M NUVIA Administration Iohexol 65 ml 06/05/24 23:36 06/05/24 23:36 Iohexol 350 Mg/Ml 100 Ml Infus..Btl IV 06/05/24 23:37 65 ml ONCE ONE Administration Methylprednisolone Sodium Succinate 80 mg 06/05/24 23:51 06/06/24 00:06 Methylprednisolone Sod Succ 125 Mg/2 Ml Vial IVPUSH 06/05/24 23:52 80 mg ONCE ONE Administration Medical Decision Making Medical Decision Making MDM Narrative: Patient is a 68-year-old female with past medical history of asthma/COPD overlap, osteoporosis, hyperlipidemia, vitamin-D deficiency who presents emergency department for evaluation of increasing shortness of breath and cough as per HPI. Has associated pain in the chest during episodes of cough otherwise without chest pain. Lower suspicion for acute ACS. Reviewed workup obtained prior to my assumption of care; CBC is without leukocytosis anemia or thrombocytopenia. No significant electrolyte derangement. No HELEN. No lactic acidosis. COVID-19/RSV/influenza testing is negative. CXR revealing a medial left lower opacity of unclear etiology, appears rounded in nature, obtaining CT of the chest for further evaluation. If CT negative, will treat accordingly as COPD exacerbation. Patient to receive a DuoNeb updraft in the ED in addition to albuterol nebulizer. She appears nontoxic, afebrile, is without tachycardia, minimally tachypneic. No rashes or lesions to suggest allergic reaction. No swallowing difficulties unlikely aspiration. No lower extremity redness pain or swelling nor history of VTE/malignancy to suggest ACS/PE. Signs of fluid volume overload to suggest CHF. Differential Diagnosis Differential Diagnoses: The differential diagnosis associated with the presentation includes (See narrative above) Admission/Observation Consideration of admission/observation: Escalation of care including admission/observation considered Lab Data MDM Lab Attestation statement: I reviewed the patient's lab results. (See narrative above) 06/05/24 19:47 06/05/24 19:47 Labs: Lab Results 06/05/24 Range/Units 19:47 WBC 7.9 (4.8-10.8) X10*3/uL RBC 4.24 (4.20-5.50) X10*6/uL Hgb 12.8 (12.0-16.0) g/dl Hct 37.4 (37.0-47.0) % MCV 88.2 (80.0-98.0) fL MCH 30.2 (27.0-33.0) pg MCHC 34.2 (31.0-35.0) g/dl RDW 12.8 (11.0-16.0) % Plt Count 241 (160-400) X10*3/uL MPV 9.1 L (9.4-12.3) fL Immature Gran % (Auto) 0.3 (0.0-0.4) % Neut % (Auto) 66.6 (45-73) % Lymph % (Auto) 19.4 L (20-40) % [place] % (Auto) 9.7 (2-11) % Eos % (Auto) 3.6 (0-4) % Baso % (Auto) 0.4 (0-2) % Lymph # (Auto) 1.5 (1.2-4.9) X10*3/uL [place] # (Auto) 0.8 (0.1-1.2) X10*3/uL Eos # (Auto) 0.3 (0.0-0.4) X10*3/uL Baso # (Auto) 0.0 (0.0-0.2) X10*3/uL Abs Immat Gran (auto) 0.02 (0.00-0.03) X10*3/uL Absolute Neuts (auto) 5.2 (2.0-8.3) x10*3/uL Absolute Nucleated RBC 0.000 (0.0-0.012) X10*3/uL Nucleated RBC % (auto) 0.0 (0.0-0.2) /100WBC Sodium 139 (135-145) mmol/L Potassium 4.1 (3.3-5.1) mmol/L Chloride 109 H (96-108) mmol/L Carbon Dioxide 23 (22-29) mmol/L Anion Gap 11 L (12-20) BUN 19 H (9-16) mg/dL Creatinine 0.94 (0.5-1.4) mg/dL Estim Creat Clear Calc 48.2 Estimated GFR 60 Random Glucose 103 (60-115) mg/dL Lactic Acid 1.1 (0.5-2.0) mmol/L Calcium 9.3 (8.4-10.2) mg/dL Magnesium 2.1 (1.6-2.6) mg/dL Total Bilirubin 0.7 (0.0-1.0) mg/dL AST 44 H (5-31) U/L ALT 51 H (0-31) U/L Alkaline Phosphatase 162 H (39-117) U/L Total Protein 7.0 (6.5-8.0) g/dL Albumin 3.9 (3.5-5.0) g/dL Influenza Type A (PCR) NEGATIVE (Negative) Influenza Type B (PCR) NEGATIVE (Negative) RSV RNA Qual (PCR) NEGATIVE (Negative) SARS-CoV-2 RNA (RT-PCR) NEGATIVE (Negative) Independent Interpretation I performed an independent interpretation of an: Plain X-Ray (See narrative above) Radiology Impression Discussion of test interpretation with radiology: I have reviewed the radiologist's reading. Radiologist Impression: 1 view chest x-ray Comparison: None Findings: Nonspecific opacity in the medial left lung base. Lungs otherwise clear. No pleural effusion or pneumothorax. Heart size normal. Impression: Nonspecific medial left lung base opacity. Consider CT chest for further evaluation. CT chest with contrast Comparison: None Findings: The heart size is normal. 1.2 cm left thyroid cyst or nodule noted. Pleural-parenchymal scarring is present within the right lung apex. Bronchial wall thickening, bronchiectatic changes and pleural-parenchymal scarring is present within the right lower lobe, inferior right upper lobe, and medial left lung base. 2.8 cm hypodensity in the right hepatic dome demonstrates mild peripheral puddling of contrast, possibly a small hemangioma. There is exaggeration of the normal thoracic kyphosis. There is osseous ankylosis of the midthoracic spine with bridging enthesophytes, changes which can accompany ankylosing spondylitis. Probable peripelvic cysts are noted bilaterally. IMPRESSION: Bronchial wall thickening with scattered areas of bronchiectasis and pleural-parenchymal scarring. Independent Historian Clinical information obtained from an independent historian. History obtained from or confirmed by: Spouse External Record Review External record reviewed: Outpatient record Chronic Conditions Patient?s care impacted by: Other (See narrative above) Discharge Plan Discharge Clinical Impression: COPD exacerbation Patient Disposition: Home, Self-Care Instructions: COPD (Chronic Obstructive Pulmonary Disease) (ED) Prescriptions: New prednisone 20 mg tablet 40 mg PO DAILY Qty: 10 0RF doxycycline hyclate 100 mg tablet 100 mg PO BID Qty: 10 0RF No Action albuterol sulfate 90 mcg/actuation HFA aerosol inhaler 2 puff inhalation Q6H PRN (Reason: bronchospasm) Qty: 8.5 5RF ipratropium-albuterol 0.5 mg-3 mg(2.5 mg base)/3 mL solution for nebulization 3 ml inhalation BID Qty: 630 2RF Prolia 60 mg/mL syringe 60 mg subcut [id number] Qty: 1 1RF montelukast 10 mg tablet 10 mg PO DAILY Qty: 90 3RF pravastatin 20 mg tablet 20 mg PO DAILY Qty: 100 2RF theophylline 300 mg tablet extended release 12 hr 300 mg PO DAILY Qty: 90 5RF cholecalciferol (vitamin D3) 50 mcg (2,000 unit) capsule 50 mcg PO DAILY Qty: 90 3RF budesonide 1 mg/2 mL suspension for nebulization 1 mg inhalation BID Qty: 180 1RF fluticasone propionate [Flonase Allergy Relief] 50 mcg/actuation spray,suspension 1 spray intranasal BID Rx Instructions: administer into each nostril Referrals: Emma Pelaez MD [Primary Care Provider] - Print Language: Ukrainian
[2024-06-05 19:55] LABS: MANUAL DIFF FLAG NO
[2024-06-05 19:57] LABS: Basophils Percent Auto 0.4 % (0-2); Eosinophils Absolute Auto 0.3 X10*3/uL (0.0-0.4); Eosinophils Percent Auto 3.6 % (0-4); Hematocrit 37.4 % (37.0-47.0); Hemoglobin 12.8 g/dl (12.0-16.0); Imm Gran Abs Auto 0.02 X10*3/uL (0.00-0.03); Imm Gran Pct Auto 0.3 % (0.0-0.4); Lymphocytes Absolute Auto 1.5 X10*3/uL (1.2-4.9); Lymphocytes Percent Auto 19.4 % (20-40); Mean Corpuscular HGB Conc 34.2 g/dl (31.0-35.0); Mean Corpuscular Hemoglobin 30.2 pg (27.0-33.0); Mean Corpuscular Volume 88.2 fL (80.0-98.0); Mean Platelet Volume 9.1 fL (9.4-12.3); Monocytes Absolute Auto 0.8 X10*3/uL (0.1-1.2); Monocytes Percent Auto 9.7 % (2-11); Neutrophils Absolute Auto 5.2 x10*3/uL (2.0-8.3); Neutrophils Percent Auto 66.6 % (45-73); Platelet Count 241 X10*3/uL (160-400); Red Blood Count 4.24 X10*6/uL (4.20-5.50); Red Cell Distribution Width 12.8 % (11.0-16.0); White Blood Count 7.9 X10*3/uL (4.8-10.8)
[2024-06-05 20:12] LABS: Alanine Aminotransferase 51 U/L (0-31); Albumin Level 3.9 g/dL (3.5-5.0); Alkaline Phosphatase 162 U/L (39-117); Anion Gap 11 (12-20); Aspartate Amino Transferase 44 U/L (5-31); Bilirubin Total 0.7 mg/dL (0.0-1.0); Blood Urea Nitrogen 19 mg/dL (9-16); Calcium 9.3 mg/dL (8.4-10.2); Carbon Dioxide 23 mmol/L (22-29); Chloride 109 mmol/L (96-108); Creatinine Clr Calc Pharmacy 48.2; Estimated Glomerular Filt Rate 60; Glucose Random 103 mg/dL (60-115); Lactic Acid 1.1 mmol/L (0.5-2.0); Magnesium 2.1 mg/dL (1.6-2.6); Potassium 4.1 mmol/L (3.3-5.1); Sodium 139 mmol/L (135-145)
[2024-06-05 20:35] LABS: Influenza A PCR NEGATIVE (Negative); Influenza B PCR NEGATIVE (Negative); Resp Syncy Virus RNA Qual PCR NEGATIVE (Negative); SARS COV2 PCR INHOUSE NEGATIVE (Negative)
[2024-06-05 22:48] VITALS: BP 129/76; PULSE 86; RESP 18; TEMP 36.6; O2SAT 98
[2024-06-05] MEDS: 0.9 % Sodium Chloride 1,000 ML 999 ML IV (23:21)
[2024-06-05] MEDS: iohexoL 350 MG/ML 100 ML INFUS..BTL 65 ML IV (23:36)
[2024-06-05] MEDS: Albuterol Sulfate 2.5 MG, Albuterol Sulfate (0.083%) 2.5 MG 5 MG INHALE (23:43)
[2024-06-05 23:46] VITALS: PULSE 72; RESP 22
[2024-06-06] MEDS: methylPREDNISolone Sod Succ 125 MG/2 ML VIAL 80 MG IVPUSH (00:06)
[2024-06-06 00:10] VITALS: BP 121/57; PULSE 81; RESP 22; TEMP 36.8; O2SAT 97
--- NOTE | 2024-06-06 01:51 | MHC.EDTECH ---
per provider, second set of cultures are not needed
[2024-06-06 02:00] VITALS: BP 121/57; PULSE 81; RESP 22; TEMP 36.8; O2SAT 97
== END 2024-06-06 02:00 | disposition home or self-care (01) ==
PROVIDERS: Physician Assistant Medical; Emergency Provider Emergency Medicine; PCP Internal Medicine
DX: J44.1 Chronic obstructive pulmonary disease with (acute) exacerbation (principal); R06.02 Shortness of breath; R05.9 Cough, unspecified; Z87.891 Personal history of nicotine dependence; Z79.899 Other long term (current) drug therapy; Z03.818 Encounter for observation for suspected exposure to other biological agents ruled out
CPT/HCPCS: 0241U; 71045; 71260; 80053; 83605; 83735; 85025; 87040; 94640; 96361; 96374; 99284; J2919; Q9967

== ENCOUNTER → 2024-06-05 18:43 | Outpatient (BNV) | payer MEDICARE, SELFPAY | PROVIDERS: PCP Internal Medicine; Visit Provider Radiology Diagnostic Radiology | DX: J94.8 Other specified pleural conditions (principal); J45.909 Unspecified asthma, uncomplicated | CPT/HCPCS: 71045; 71260 ==

== ENCOUNTER 2024-06-06 13:34 | Outpatient (AMB) | payer MEDICARE, SELFPAY ==
--- NOTE | 2024-06-06 13:48 | AM.OFFVISNUR ---
Intake Visit Reasons: Prolia injection Intake Note: Pt arrived for Prolia injection. She was due in March but forgot to order the med. Allergies No Known Allergies Allergy (Verified 06/05/24 18:44) Office Meds Prolia 60 mg/mL subcutaneous syringe Performing Provider: Emma Pelaez MD Performing Location: [facility] [place] [facility] Administered by: Sanam Thomas RN on 06/06/24 13:48 Dose Route Admin Location Dispensed Lot Number Expiration Date [facility] [employer] 60 mg subcut Left upper arm 1 mL [id number] 09/12/26 69140-601-65 AMGEN Comments: Pt supplied Assessment & Plan Assessment & Plan Orders: Orders AMB Denosumab Injection Patient Supplied Today M81.0 - Age-related osteoporosis without current pathological fracture Medications: New Prolia (denosumab) 60 mg subcut ONCE 1 mL 0RF NS M81.0 - Age-related osteoporosis without current pathological fracture Coding
== END 2024-06-06 14:16 | disposition home or self-care (01) ==
LOC: HO.HMCC 13:34
PROVIDERS: PCP Internal Medicine; Visit Provider Internal Medicine
DX: M81.0 Age-related osteoporosis without current pathological fracture (principal)

== ENCOUNTER → 2024-06-06 13:34 | Outpatient (BNVA) | payer MEDICARE, SELFPAY | PROVIDERS: PCP Internal Medicine; Visit Provider Internal Medicine | DX: M81.0 Age-related osteoporosis without current pathological fracture (principal) | CPT/HCPCS: 96372; J0897 ==

== ENCOUNTER 2024-08-14 13:17 | Outpatient (AMB) | payer MEDICARE, SELFPAY ==
[2024-08-14 13:18] VITALS: BP 106/70; PULSE 76; TEMP 36.4; O2SAT 99; BMI 29.9
--- NOTE | 2024-08-14 13:18 | A.OFFPC_ITS ---
Vital Signs 08/14/24 13:18 Height 4 ft 11 in Weight 148 lb 4 oz BMI 29.9 BP 106/70 Blood Pressure Location Rt brachial Position Sitting Pulse 76 Pulse Source Pulse Oximeter Temp 97.6 F Temp Source Oral Pulse Oximetry (%) 99 Oxygen Delivery Method Room Air Intake Visit Reasons: Annual PE Allergies cat dander Allergy (Intermediate, Verified 08/14/24 13:54) Unknown dog dander Allergy (Mild, Verified 08/14/24 13:54) Unknown ragweed pollen Allergy (Mild, Verified 08/14/24 13:54) Unknown Medication List - Last Reconciled 08/14/24 by Emma Pelaez MD albuterol sulfate 90 mcg/actuation 2 puffs inhalation Q6H PRN budesonide 1 mg (2 mL) inhalation BID cholecalciferol (vitamin D3) 50 mcg PO DAILY fluticasone propionate 50 mcg/actuation (Flonase Allergy Relief) 1 spray intranasal BID ipratropium-albuterol 0.5 mg-3 mg(2.5 mg base)/3 mL 3 mL inhalation BID montelukast 10 mg PO DAILY pravastatin 20 mg PO DAILY Prolia (denosumab) 60 mg subcut [id number] NS theophylline ER 300 mg PO DAILY Tobacco use date assessed: 08/14/24 Fall risk assessment: No Falls in past year Last assessed Fall Risk: 08/14/24 Dental Screening Dental Screen Date: 08/14/24 Did you have a dental visit in the last 12 months?: Yes Did you have a dental problem in the last 6 months where you did not have access to dental care?: No Was dental information given to patient?: Patient has dentist HPI Annual PE HPI Details Pt presents for PE. PFSH Medical History (Updated 08/14/24 @ 15:02 by Emma Pelaez MD) Multiple lipomas Vitamin D deficiency Annual physical exam Mammogram normal Osteoporosis Hyperlipidemia Asthma COPD (chronic obstructive pulmonary disease) Surgical History S/P excision of lipoma (~09/29/22) S/P GURINDER (total abdominal hysterectomy) H/O: hysterectomy H/O colonoscopy Family History Father Stroke Mother Heart problem Sister Breast cancer Social History Housing: House Alcohol intake: never Patient Tobacco Use Status: Former Tobacco user e-Cigarette/Vaping Use: Never Used Second Hand Smoke Exposure: No service: No Current occupational status: retired Cognitive needs: No Hearing needs: No Vision needs: No Questionnaire PHQ-9 Over the last 2 weeks, how often have you been bothered by any of the following problems? 1. Little interest or pleasure in doing things: not at all 2. Feeling down, depressed, or hopeless: not at all 3. Trouble falling or staying asleep, or sleeping too much: not at all 4. Feeling tired or having little energy: not at all 5. Poor appetite or overeating: not at all 6. Feeling bad about yourself - or that you are a failure or have let yourself or your family down: not at all 7. Trouble concentrating on things, such as reading the newspaper or watching television: not at all 8. Moving or speaking so slowly that other people could have noticed. Or the opposite - being so fidgety or restless that you have been moving around a lot more than usual: not at all 9. Thoughts that you would be better off or of hurting yourself in some way: not at all Total score: 0 Depression Screening Interpretation: Negative Depression Screening Done: Yes 39756 - PHQ-9 Billing: Yes Source: Developed by Drs. Alex Walton, Julia Tavares, Darshan Nichole and colleagues, with an educational angel from [employer]. Thrive Questionnaire Date Thrive assessed: 08/14/24 I am a: Patient What is your living situation today?: I have a steady place to live Within the past 12 months, did the food you bought not last and you didn't have the money to get more?: Never true Within the past 12 months, did you worry whether your food would run out before you got money to buy more?: Never true Do you have trouble paying for medicines?: No Do you have trouble getting transportation to medical appointments?: No Do you have trouble paying your heating and electricity bill?: No Do you have trouble taking care of your child, family member or friend?: No Do you have trouble with day-to-day activities such as bathing, preparing meals, shopping, managing finances, etc.?: No Are you currently unemployed and looking for a job?: No Are you interested in more education?: No Please select the resources that you would like help with: None THRIVE Score: 0 AUDIT C Alcohol Use Questionnaire (AUDIT-C) 1. How often do you have a drink containing alcohol?: Never 3. How often do you have six or more drinks on one occasion?: Never Total Score: 0 CHICA-7 AMB Questionnaire CHICA-7 Date CHICA - 7 assessed: 08/11/23 Feeling nervous, anxious, or on edge: 0 = Not at all Not being able to stop or control worryin = Not at all Worrying too much about different things: 0 = Not at all Trouble relaxin = Not at all Being so restless that it is hard to sit still: 0 = Not at all Becoming easily annoyed or irritable: 0 = Not at all Feeling afraid as if something awful might happen: 0 = Not at all Total CHICA-7 score (0-4 normal; 5-9 mild; 10-14 moderate; 15-21 severe): 0 Source: Developed by Drs. Alex Wlaton, Julia Tavares, Darshan Nichole and colleagues, with an educational angel from [employer]. CHICA-7 Assessment Billing CHICA-7 Assessment Tool: CHICA-7 Assessment 16265 Review of Systems Const All systems reviewed & are unremarkable except as noted in HPI and below Eyes Reports no additional complaints ENT Reports no additional complaints Card Reports no additional complaints Resp Reports no additional complaints GI Reports no additional complaints Reports no additional complaints Physical exam (Primary Care) Vital Signs: Last Vital Signs Temp 97.6 F 08/14/24 13:18 Pulse 76 08/14/24 13:18 BP 106/70 08/14/24 13:18 Pulse Ox 99 08/14/24 13:18 Oxygen Delivery Method Room Air 08/14/24 13:18 BMI result Body Mass Index 29.9 Tobacco/Smoking Status: Tobacco use Status Tobacco use date assessed 08/14/24 08/14/24 13:19 Patient Tobacco Use Status Former Tobacco user 08/14/24 13:19 e-Cigarette/Vaping Use Never Used 08/14/24 13:19 PHQ-9: PHQ-9 Score PHQ-9: Total score 0 08/14/24 13:19 Depression Screening Interpretation: Negative Thrive Assessment: Date of Thrive Assessment Date Thrive assessed 08/14/24 08/14/24 13:19 Const General: no acute distress HENMT Head: Yes normal to inspection Ears: hearing grossly normal bilaterally Face and sinus: Yes normal facial exam Mouth: Normal oral and palatal mucosa present Eyes General: appearance normal, both eyes and all related structures Neck Neck: Yes no lymphadenopathy and Yes supple Resp Effort & Inspection: normal respiratory effort Auscultation: clear to auscultation bilaterally Cardio Rhythm: regular rhythm Heart sounds: S1 normal heart sound present and S2 normal heart sound present GI Inspection: Yes normal to inspection Palpation (GI): Soft to palpation Percussion: Yes normal to percussion Auscultation: normal bowel sounds Coding Level of Care Code Est Pt Prev Care >65y(48039) Diagnoses Osteoporosis M81.0 COPD (chronic obstructive pulmonary disease) J44.9 Hyperlipidemia E78.5 Annual physical exam Z00.00 Additional Codes CHICA-7 Assessment Billing - CHICA-7 Assessment Tool: CHICA-7 Assessment 28942 ([id number]) PHQ-9 - 56193 - PHQ-9 Billing: Yes ([id number]) Assessment & Plan Assessment & Plan (1) Osteoporosis: Comment: took Alendronate for>5 yes, stopped 11/2019, DEXA 03/2020 T score -3.8 L spine, DEXA 09/04 Tscore-4.6 in AP spine, started Prolia 03/06 Code(s): M81.0 - Age-related osteoporosis without current pathological fracture Category: Medical Plan: Continue Prolia repeat DEXA in February (2) COPD (chronic obstructive pulmonary disease): Comment: She does have moderately advanced chronic obstructive pulmonary disease . But remains stable and doing well. Code(s): J44.9 - Chronic obstructive pulmonary disease, unspecified Category: Medical Plan: Continue current treatment (3) Hyperlipidemia: Code(s): E78.5 - Hyperlipidemia, unspecified Category: Medical Plan: Continue statin (4) Annual physical exam: Code(s): Z00.00 - Encounter for general adult medical examination without abnormal findings Category: Medical Plan: Well-balanced diet regular physical activity discussed with the patient she will follow-up after DEXA in February Orders: Orders XR DEXA axial skeleton 6 Months M81.0 - Age-related osteoporosis without current pathological fracture Medications: Refilled Prolia (denosumab) 60 mg subcut [id number] 1 mL 1RF NS albuterol sulfate 90 mcg/actuation 2 puffs inhalation Q6H PRN 8.5 grams 5RF bronchospasm pravastatin 20 mg PO DAILY 100 tabs 2RF budesonide 1 mg (2 mL) inhalation BID 180 mL 3RF
== END 2024-08-14 14:38 | disposition home or self-care (01) ==
LOC: HO.HMCC 13:17
PROVIDERS: PCP Internal Medicine; Visit Provider Internal Medicine
DX: Z00.00 Encounter for general adult medical examination without abnormal findings (principal); M81.0 Age-related osteoporosis without current pathological fracture; J44.9 Chronic obstructive pulmonary disease, unspecified; E78.5 Hyperlipidemia, unspecified

== ENCOUNTER → 2024-08-14 13:17 | Outpatient (BNVA) | payer MEDICARE, SELFPAY | PROVIDERS: PCP Internal Medicine; Visit Provider Internal Medicine | DX: Z00.00 Encounter for general adult medical examination without abnormal findings (principal); M81.0 Age-related osteoporosis without current pathological fracture; J44.9 Chronic obstructive pulmonary disease, unspecified; E78.5 Hyperlipidemia, unspecified | CPT/HCPCS: 96127; 99397 ==

== ENCOUNTER 2024-08-21 13:22 | Outpatient (AMB) | payer MEDICARE, SELFPAY ==
[2024-08-21 13:30] VITALS: BP 102/60; PULSE 83; O2SAT 98; BMI 29.6
--- NOTE | 2024-08-21 13:30 | MHC.OFFVIS ---
Vital Signs 08/21/24 13:30 Height 4 ft 11 in Weight 146 lb 9.718 oz BMI 29.6 BP 102/60 Blood Pressure Location Lt brachial Position Sitting Pulse 83 Pulse Source Pulse Oximeter Pulse Oximetry (%) 98 Oxygen Delivery Method Room Air Intake Visit Reasons: COPD Intake Note: pt is here for follow up and had an ER visit, had ct scan, and today she is good, but has a cough Breaker Boss Required: No Allergies cat dander Allergy (Intermediate, Verified 08/21/24 13:46) Unknown dog dander Allergy (Mild, Verified 08/21/24 13:46) Unknown ragweed pollen Allergy (Mild, Verified 08/21/24 13:46) Unknown Medication List - Last Reconciled 08/21/24 by Radha Mendez MD albuterol sulfate 90 mcg/actuation 2 puffs inhalation Q6H PRN budesonide 1 mg (2 mL) inhalation BID cholecalciferol (vitamin D3) 50 mcg PO DAILY fluticasone propionate 50 mcg/actuation (Flonase Allergy Relief) 1 spray intranasal BID ipratropium-albuterol 0.5 mg-3 mg(2.5 mg base)/3 mL 3 mL inhalation BID montelukast 10 mg PO DAILY pravastatin 20 mg PO DAILY Prolia (denosumab) 60 mg subcut [id number] NS theophylline ER 300 mg PO DAILY Do you need a note to return to daycare/school/sports/work: No HPI HPI COPD: Details: This 68 years old female is for her routine follow-up, but since her last visit at the end of May she did go to the emergency room for an acute exacerbation. CT scan of the chest on 06/05/2024, showed thickening of the bronchial tubes and also bronchiectases as usual but there was no definite consolidation. She was treated with a course of prednisone and also . Course of Z-Larry and improved But since then she is having somewhat increased cough and finds it difficult to bring up the phlegm. She does use her meds very regularly. [facility] Medical History Multiple lipomas Vitamin D deficiency Annual physical exam Mammogram normal Osteoporosis Hyperlipidemia Asthma COPD (chronic obstructive pulmonary disease) Surgical History S/P excision of lipoma (~09/29/22) S/P GURINDER (total abdominal hysterectomy) H/O: hysterectomy H/O colonoscopy Family History Father Stroke Mother Heart problem Sister Breast cancer Social History Housing: House Alcohol intake: never Patient Tobacco Use Status: Former Tobacco user e-Cigarette/Vaping Use: Never Used Second Hand Smoke Exposure: No service: No Current occupational status: retired Cognitive needs: No Hearing needs: No Vision needs: No Review of Systems Const All systems reviewed & are unremarkable except as noted in HPI and below Eyes Reports no additional complaints ENT Reports nasal congestion (Mild intermittent, mostly due to change in the weather) Card Denies chest pain, Denies irregular heart rhythm and Denies leg edema Resp Reports as per HPI GI Reports no additional complaints Reports no additional complaints Musc Reports back pain (Mild, not active) Skin/Breast Reports system reviewed and no additional complaints, except as documented Neuro Reports no additional complaints Psych Reports no additional complaints Physical Exam Vital Signs: Last Vital Signs Pulse 83 08/21/24 13:30 BP 102/60 08/21/24 13:30 Pulse Ox 98 08/21/24 13:30 Oxygen Delivery Method Room Air 08/21/24 13:30 BMI result Body Mass Index 29.6 Const General: comfortable, no acute distress, alert and awake Orientation/consciousness: patient oriented x3 HEENT Head: Yes normal to inspection General nose exam: No nasal polyps present and No nasal discharge present Face and sinus: Yes sinuses nontender Mouth: oropharynx normal Throat: Yes posterior oropharynx normal Eyes General: appearance normal, both eyes and all related structures Neck Neck: Yes normal visual inspection, Yes no lymphadenopathy, Yes trachea midline and Yes no JVD Thyroid: Thyroid normal Chest Chest palpation & inspection: normal inspection of the chest, normal palpation of entire chest wall, no tenderness and other (Has increased AP diameter of the chest) Resp Other: Percussion note hyper-resonant, breath sounds are equal on both sides, moderately distant with prolonged expiratory phase. No wheezes or. Rhonchi are heard today. Lungs are very clear. Cardio Palpation: normal PMI Rate: regular rate Rhythm: regular rhythm Heart sounds: no gallops and no murmurs Peripheral pulses: Peripheral pulses 2+ throughout GI Palpation (GI): Soft to palpation, nontender, No hepatosplenomegaly present and no masses Auscultation: normal bowel sounds Back/Spine/Pelvis Thoracic/Lumbar Spine: thoracic and lumbar spine normal to inspection and thoraco-lumbar ROM limited Skin General skin exam: no rashes or lesions noted Neuro General: patient oriented x3 and no focal motor deficits Cranial nerves: Yes CN's II-XII intact bilaterally Extrem General: Yes normal to inspection, Yes no clubbing, cyanosis or edema and Yes no calf tenderness Psych Appearance: grossly normal and well kempt Speech and movement: Normal speech and movement present Results Reviewed Results Reviewed: CT scan of the chest on 06/05/2024. Bronchial wall thickening and scattered areas of bronchiectasis, as well as some pleural parenchymal scarring. No consolidation. Assessment & Plan Assessment & Plan (1) Asthma: Comment: SHE HAS ASTHMA/ COPD OVERLAP SYNDROME. OVER THE PAST MANY YEARS IT HAS CHANGED MOSTLY INTO COPD She was treated for an acute exacerbation in the last week of May from which she has improved and now basically stable. Code(s): J45.909 - Unspecified asthma, uncomplicated Category: Medical Plan: Continue nebulized treatments with budesonide 1 mg b.i.d. Ipratropium-albuterol solution in the nebulizer . May use Mucinex 600 mg b.i.d. p.r.n. if she has any thick mucus. Theophylline ER 300 mg once a day Prednisone 20 mg b.i.d. for 5 days prescribed but she is advised to keep this just on hand and. Does not have to take it in a (2) Allergic rhinitis: Comment: CHRONIC ALLERGIC TYPE OF RHINITIS. CONTROLLED WITH MONTELUKAST 10 MG DAILY, AND CLARITIN 10 MG P.R.N.. Code(s): J30.9 - Allergic rhinitis, unspecified Category: Medical Plan: Continue the above meds Medications: New prednisone 20 mg PO BID 5 days 10 tabs 0RF for copd excerbation Coding Level of Care Code Est Pt Level 3 (08434) Diagnoses Asthma J45.909 Allergic rhinitis J30.9
== END 2024-08-21 13:46 | disposition home or self-care (01) ==
LOC: HO.HPS 13:22
PROVIDERS: PCP Internal Medicine; Visit Provider Internal Medicine
DX: J45.909 Unspecified asthma, uncomplicated (principal); J30.9 Allergic rhinitis, unspecified
CPT/HCPCS: 99213

== ENCOUNTER → 2024-08-21 13:22 | Outpatient (BNVA) | payer MEDICARE, SELFPAY | PROVIDERS: PCP Internal Medicine; Visit Provider Internal Medicine | DX: J45.909 Unspecified asthma, uncomplicated (principal) | CPT/HCPCS: 99212 ==

== ENCOUNTER 2024-08-29 13:05 | Outpatient (REF) | payer MEDICARE, SELFPAY ==
[2024-08-29 16:18] LABS: MANUAL DIFF FLAG NO
[2024-08-29 16:23] LABS: Basophils Percent Auto 0.7 % (0-2); Eosinophils Absolute Auto 0.3 X10*3/uL (0.0-0.4); Eosinophils Percent Auto 7.8 % (0-4); Hematocrit 41.1 % (37.0-47.0); Hemoglobin 13.3 g/dl (12.0-16.0); Imm Gran Abs Auto 0.01 X10*3/uL (0.00-0.03); Imm Gran Pct Auto 0.2 % (0.0-0.4); Lymphocytes Absolute Auto 1.6 X10*3/uL (1.2-4.9); Lymphocytes Percent Auto 37.5 % (20-40); Mean Corpuscular HGB Conc 32.4 g/dl (31.0-35.0); Mean Corpuscular Hemoglobin 29.1 pg (27.0-33.0); Mean Corpuscular Volume 89.9 fL (80.0-98.0); Monocytes Absolute Auto 0.3 X10*3/uL (0.1-1.2); Monocytes Percent Auto 7.4 % (2-11); Neutrophils Percent Auto 46.4 % (45-73); Platelet Count 224 X10*3/uL (160-400); Red Blood Count 4.57 X10*6/uL (4.20-5.50); Red Cell Distribution Width 13.2 % (11.0-16.0); White Blood Count 4.2 X10*3/uL (4.8-10.8)
[2024-08-29 16:53] LABS: Alanine Aminotransferase 17 U/L (0-31); Albumin Level 4.3 g/dL (3.5-5.0); Alkaline Phosphatase 70 U/L (39-117); Anion Gap 11 (12-20); Aspartate Amino Transferase 25 U/L (5-31); Bilirubin Total 0.4 mg/dL (0.0-1.0); Blood Urea Nitrogen 19 mg/dL (9-16); Calcium 9.3 mg/dL (8.4-10.2); Carbon Dioxide 24 mmol/L (22-29); Chloride 110 mmol/L (96-108); Cholesterol 187 mg/dL (<200); Estimated Glomerular Filt Rate > 60; Glucose Fasting 81 mg/dL (60-99); HDL Cholesterol 46 mg/dL (>40); LDL Cholesterol Calculated 114 mg/dL (<100); Potassium 4.2 mmol/L (3.3-5.1); Sodium 141 mmol/L (135-145); Total Protein 6.8 g/dL (6.5-8.0); Triglycerides 139 mg/dL (<150)
[2024-08-29 17:09] LABS: TSH reflex Free T4 1.47 uIU/mL (0.32-4.0); Vitamin D 25-OH Total 47.1 ng/mL (>30)
[2024-08-29 17:25] LABS: Parathyroid Hormone Intact 107.6 pg/mL (8.7-77.1)
== END 2024-08-29 13:06 | disposition home or self-care (01) ==
LOC: HO.HMGCLDS 13:05
PROVIDERS: PCP Internal Medicine; Visit Provider Internal Medicine
DX: Z00.00 Encounter for general adult medical examination without abnormal findings (principal); E55.9 Vitamin D deficiency, unspecified; M81.0 Age-related osteoporosis without current pathological fracture; J45.909 Unspecified asthma, uncomplicated; E78.5 Hyperlipidemia, unspecified
CPT/HCPCS: 36415; 80053; 80061; 82306; 83970; 84443; 85025

== ENCOUNTER 2024-10-12 13:05 | Outpatient (REF) | payer MEDICARE, SELFPAY ==
--- NOTE | ~2024-10-12 | MM_ITS ---
EXAMINATION: DXA BONE DENSITY AXIAL HISTORY: M81.0 - Age-related osteoporosis without current pathological fracture TECHNIQUE: [employer] Dual energy absorptiometry (DEXA) of the lumbar spine, total left hip, and femoral neck was performed. COMPARISON: Comparison is made with the prior examination dated 08/18/2022. FINDINGS: The bone mineral density of the lumbar spine is 0.749 g/cm2, corresponding to a T-score of -3.6, and a Z-score of -2.0. This is indicative of osteoporosis. This represents a BMD change of 13.1% compared to the prior exam. This is statistically significant. The bone mineral density of the left total hip is 0.785 g/cm2, corresponding to a T-score of -1.8, and a Z-score of -0.5. This is indicative of osteopenia. This represents a BMD change of 5.8% compared to the prior exam. This is statistically significant. The bone mineral density of the left femoral neck is 0.712 g/cm2, corresponding to a T-score of -2.3, and a Z-score of -0.8. This is indicative of osteopenia. This represents a BMD change of 11.4% compared to the prior exam. MM/XR DEXA axial skeleton IMPRESSION: Based on bone mineral density, and according to World Health Organization (WHO) criteria, the diagnosis is consistent with osteoporosis. Statistically, 68% of repeat scans fall within 1 SD (+/- 0.010 g/cm2 for AP spine L1-L4) and 1 SD (+/- 0.012 g/cm2 for femur total) FRAX is a trademark of the [employer]'s [place] for Metabolic Bone Disease, a World Health Organization (WHO) Collaborating Center. Electronically signed by: Alex Thorne MD 10/12/2024 01:31 PM EDT
== END 2024-10-12 13:06 | disposition home or self-care (01) ==
LOC: HO.MAMMO 13:05
PROVIDERS: PCP Internal Medicine; Visit Provider Internal Medicine
DX: Z12.31 Encounter for screening mammogram for malignant neoplasm of breast (principal); M81.0 Age-related osteoporosis without current pathological fracture
CPT/HCPCS: 77063; 77067; 77080

== ENCOUNTER → 2024-10-12 13:30 | Outpatient (BNV) | payer MEDICARE, SELFPAY | PROVIDERS: PCP Internal Medicine; Visit Provider Radiology Diagnostic Radiology | DX: E28.39 Other primary ovarian failure (principal) | CPT/HCPCS: 77080 ==

== ENCOUNTER 2024-12-20 13:23 | Outpatient (AMB) | payer MEDICARE, SELFPAY ==
[2024-12-20 13:28] VITALS: BP 102/64; PULSE 87; O2SAT 98; BMI 29.6
--- NOTE | 2024-12-20 13:28 | MHC.OFFVIS ---
Vital Signs 12/20/24 13:28 Height 4 ft 11 in Weight 146 lb 9.718 oz BMI 29.6 BP 102/64 Blood Pressure Location Lt brachial Position Sitting Pulse 87 Pulse Source Pulse Oximeter Pulse Oximetry (%) 98 Oxygen Delivery Method Room Air Intake Visit Reasons: COPD Intake Note: pt is here for follow up and states she is feeling okay Consulting Application Engineer: Consulting Application Engineer offered & declined Allergies cat dander Allergy (Intermediate, Verified 12/20/24 13:39) Unknown dog dander Allergy (Mild, Verified 12/20/24 13:39) Unknown ragweed pollen Allergy (Mild, Verified 12/20/24 13:39) Unknown Medication List - Last Reconciled 12/20/24 by Radha Mendez MD albuterol sulfate 90 mcg/actuation 2 inhalations PO Q6H PRN budesonide 1 mg (2 mL) inhalation BID cholecalciferol (vitamin D3) 50 mcg PO DAILY fluticasone propionate 50 mcg/actuation (Flonase Allergy Relief) 1 spray intranasal BID ipratropium-albuterol 0.5 mg-3 mg(2.5 mg base)/3 mL 3 mL inhalation BID montelukast 10 mg PO DAILY pravastatin 20 mg PO DAILY Prolia (denosumab) 60 mg subcut [id number] NS theophylline ER 300 mg PO DAILY Do you need a note to return to daycare/school/sports/work: No HPI HPI COPD: Details: Georgie is here for follow-up after 4 months. She has been very stable on the current regimen Has had no acute respiratory infection and no acute exacerbation. She does her household work without much shortness of breath. Sleeps good at night . PFSH Medical History Multiple lipomas Vitamin D deficiency Annual physical exam Mammogram normal Osteoporosis Hyperlipidemia Asthma COPD (chronic obstructive pulmonary disease) Surgical History S/P excision of lipoma (~09/29/22) S/P GURINDER (total abdominal hysterectomy) H/O: hysterectomy H/O colonoscopy Family History Father Stroke Mother Heart problem Sister Breast cancer Social History Housing: House Alcohol intake: never Patient Tobacco Use Status: Former Tobacco user e-Cigarette/Vaping Use: Never Used Second Hand Smoke Exposure: No service: No Current occupational status: retired Cognitive needs: No Hearing needs: No Vision needs: No Review of Systems Const All systems reviewed & are unremarkable except as noted in HPI and below Eyes Reports no additional complaints ENT Reports nasal congestion (Mild intermittent, mostly due to change in the weather) Card Denies chest pain, Denies irregular heart rhythm and Denies leg edema Resp Reports as per HPI GI Reports no additional complaints Reports no additional complaints Musc Reports back pain (Mild, not active) Skin/Breast Reports system reviewed and no additional complaints, except as documented Neuro Reports no additional complaints Psych Reports no additional complaints Physical Exam Vital Signs: Last Vital Signs Pulse 87 12/20/24 13:28 BP 102/64 12/20/24 13:28 Pulse Ox 98 12/20/24 13:28 Oxygen Delivery Method Room Air 12/20/24 13:28 BMI result Body Mass Index 29.6 Const General: comfortable, no acute distress, alert and awake Orientation/consciousness: patient oriented x3 HEENT Head: Yes normal to inspection General nose exam: No nasal polyps present and No nasal discharge present Face and sinus: Yes sinuses nontender Mouth: oropharynx normal Throat: Yes posterior oropharynx normal Eyes General: appearance normal, both eyes and all related structures Neck Neck: Yes normal visual inspection, Yes no lymphadenopathy, Yes trachea midline and Yes no JVD Thyroid: Thyroid normal Chest Chest palpation & inspection: normal inspection of the chest, normal palpation of entire chest wall, no tenderness and other (Has increased AP diameter of the chest) Resp Other: Percussion note hyper-resonant, breath sounds are equal on both sides, moderately distant with prolonged expiratory phase. No wheezes or. Rhonchi are heard today. Lungs are very clear. Cardio Palpation: normal PMI Rate: regular rate Rhythm: regular rhythm Heart sounds: no gallops and no murmurs Peripheral pulses: Peripheral pulses 2+ throughout GI Palpation (GI): Soft to palpation, nontender, No hepatosplenomegaly present and no masses Auscultation: normal bowel sounds Back/Spine/Pelvis Thoracic/Lumbar Spine: thoracic and lumbar spine normal to inspection and thoraco-lumbar ROM limited Skin General skin exam: no rashes or lesions noted Neuro General: patient oriented x3 and no focal motor deficits Cranial nerves: Yes CN's II-XII intact bilaterally Extrem General: Yes normal to inspection, Yes no clubbing, cyanosis or edema and Yes no calf tenderness Psych Appearance: grossly normal and well kempt Speech and movement: Normal speech and movement present Office Procedures Spirometry Testing Spirometry 46639- Spirometry (SPIROMETRY DONE) Results Reviewed Results Reviewed: spirometry 12/27/2020 12/20/24 fvc 69 % 76 FEV1 61 % 59 Fev1/FVC 71 61 FEF 25-75 42 29 Assessment & Plan Assessment & Plan (1) COPD (chronic obstructive pulmonary disease): Comment: She does have moderately advanced chronic obstructive pulmonary disease . But remains stable and doing well. Luckily she does not get frequent respiratory infection or exacerbations Code(s): J44.9 - Chronic obstructive pulmonary disease, unspecified Category: Medical Plan: Continue to use budesonide 1 mg( 2 ml ) in the nebulizer b.i.d. Ipratropium-albuterol solution in the nebulizer Q 6 hours p.r.n. ( uses about 4 times a day) Albuterol HFA 2 puffs Q 6 hours p.r.n. when outdoors Theophylline ER 300 mg daily (2) Asthma: Comment: SHE HAS ASTHMA/ COPD OVERLAP SYNDROME. OVER THE PAST MANY YEARS IT HAS CHANGED MOSTLY INTO COPD She was treated for an acute exacerbation in the last week of May from which she has improved and now basically stable. Code(s): J45.909 - Unspecified asthma, uncomplicated Category: Medical Plan: Same as under COPD. (3) Allergic rhinitis: Comment: CHRONIC ALLERGIC TYPE OF RHINITIS. Remains controlled. CONTROLLED WITH MONTELUKAST 10 MG DAILY, AND CLARITIN 10 MG P.R.N.. Code(s): J30.9 - Allergic rhinitis, unspecified Category: Medical Plan: Continue montelukast 10 mg daily Flonase-52 spray each nostril daily Loratadine 10 mg once a day p.r.n. Orders: Orders AMB Spirometry Testing Today J45.909 - Unspecified asthma, uncomplicated Coding Level of Care Code Est Pt Level 3 (88024) Diagnoses COPD (chronic obstructive pulmonary disease) J44.9 Asthma J45.909 Allergic rhinitis J30.9 CPT Codes Spirometry - CPT: 37514- Spirometry ([id number])
== END 2024-12-20 14:00 | disposition home or self-care (01) ==
LOC: HO.HPS 13:24
PROVIDERS: PCP Internal Medicine; Visit Provider Internal Medicine
DX: J44.9 Chronic obstructive pulmonary disease, unspecified (principal); J45.909 Unspecified asthma, uncomplicated; J30.9 Allergic rhinitis, unspecified
CPT/HCPCS: 94010; 99213

== ENCOUNTER → 2024-12-20 13:23 | Outpatient (BNVA) | payer MEDICARE, SELFPAY | PROVIDERS: PCP Internal Medicine; Visit Provider Internal Medicine | DX: J44.9 Chronic obstructive pulmonary disease, unspecified (principal); J45.909 Unspecified asthma, uncomplicated; J30.9 Allergic rhinitis, unspecified | CPT/HCPCS: 94010; 99212 ==